=== PATIENT | female | born 1945 ===

== ENCOUNTER → 2017-12-18 | Outpatient (CLI) | payer MEDICARE, OTHER ==
[~2017-12-18] MED LIST: ALBU90OI INH; ALEN70 PO; AMLO5 PO; ASCO500 PO; ATOR20 PO; AZAT50 PO; AZIT250 PO; Aspirin EC325 MG PO; Aspirin EC81 MG PO; BISA10S PR; CLARITIN5 MG PO; CLOP75 PO; CYCL10 PO; Cipro500 MG PO; Cyclobenzaprine5 MG PO; DAPS100 PO; DIAZ5 PO; DOCU100 PO; Dapsone25 MG PO; ERGO400 PO; FERSU220EL PO; FURO20 PO; FURO40 PO; GABA100 PO; HYDACE10B PO; HYDACE5 PO; HYDHCL25 PO; HYDPAM50 PO; HYDR1TAB94 PO; HYDSUL200 PO; IMIP50 PO; INDERAL PO; Inderal 20 mg T20 MG PO; Inderal40 MG PO; KLOR CON PO; LANS15EC; LAVAP17G PO; LEVOTHYROXINE; LEVSOD75 PO; LISI20 PO; Lasix40 MG PO; MIRALAX17 GM PO; Nitrostat0.4 MG SL; Norco 5-325 Ta1 EACH PO; OMEP20ER PO; OMEPRAZOLE MAGN20 MG PO; ONDA4 PO; OXYACE5T PO; POTA10T PO; POTA8 PO; PROM25 PO; PROP10 PO; PROP80ER PO; Prednisone20 MG PO; RXHYDMOR2 PO; SENN187 PO; SPIR25 PO; STOOL SOFTENER1 EAC1 PO; Synthroid25 MCG PO; TRAZ50 PO; VERA80 PO; Valium5 MG PO; Zofran Odt4 MG SL
[2017-12-19 11:29] LABS: Candida species (DNA Probe) Negative (NEGATIVE); G. vaginalis (DNA Probe) Negative (NEGATIVE); T. vaginalis (DNA Probe) Negative (NEGATIVE)
== END | disposition home or self-care (01) ==
LOC: LAB EV 15:00
PROVIDERS: Nurse Practitioner Family
DX: N76.0 Acute vaginitis (principal); R30.0 Dysuria
CPT/HCPCS: 87070; 87077; 87086; 87186; 87205; 87480; 87510; 87660

== ENCOUNTER 2017-12-28 12:48 | Day surgery (SDC) | payer MEDICARE, OTHER ==
[~2017-12-28] VITALS: Ht 154.9 cm; Wt 84.1 kg
[~2017-12-28 12:48] MED LIST changes: -LANS15EC
[2017-12-28] MEDS ORDERED: LANS15EC (14:21)
== END 2017-12-28 15:49 | disposition home or self-care (01) ==
LOC: ORSCSDS 12:48
PROVIDERS: Internal Medicine Gastroenterology
PROC: 0DBM8ZX Excision of Descending Colon, Via Natural or Artificial Opening Endoscopic, Diagnostic (ICD-10-PCS; principal; 2017-12-28 14:15)
PROC: 0DBC8ZX Excision of Ileocecal Valve, Via Natural or Artificial Opening Endoscopic, Diagnostic (ICD-10-PCS; principal; 2017-12-28 14:15)
PROC: 0DBN8ZX Excision of Sigmoid Colon, Via Natural or Artificial Opening Endoscopic, Diagnostic (ICD-10-PCS; principal; 2017-12-28 14:15)
DX: R19.4 Change in bowel habit (principal); D12.0 Benign neoplasm of cecum; D12.4 Benign neoplasm of descending colon; D12.5 Benign neoplasm of sigmoid colon; K57.30 Diverticulosis of large intestine without perforation or abscess without bleeding; Z86.010 Personal history of colon polyps; L93.0 Discoid lupus erythematosus; I10 Essential (primary) hypertension; K21.9 Gastro-esophageal reflux disease without esophagitis; E78.00 Pure hypercholesterolemia, unspecified; Z79.899 Other long term (current) drug therapy
CPT/HCPCS: 88305; J1980; J7120

== ENCOUNTER → 2019-01-06 | Outpatient (CLI) | payer MEDICARE, OTHER ==
[~2019-01-06] MED LIST changes: +**INCOMPLETE MED REC; +Azasan100 MG PO; +EUTHYROX25 MCG PO; +Hydroxyzine HCl50 MG PO; +LANS15EC; +Omeprazole20 M1 PO; +POTCHL20ER PO
== END | disposition home or self-care (01) ==
LOC: LAB EV 15:52 → LAB SHORT 15:52
DX: N39.0 Urinary tract infection, site not specified (principal)
CPT/HCPCS: 87077; 87086; 87186

== ENCOUNTER 2019-01-11 18:06 | Observation (INO) | payer MEDICARE, OTHER ==
[~2019-01-11] VITALS: Ht 165.1 cm; Wt 71.8 kg
[~2019-01-11 18:06] MED LIST changes: -**INCOMPLETE MED REC; -AMLO5 PO; -Azasan100 MG PO; -Dapsone25 MG PO; -EUTHYROX25 MCG PO; -Hydroxyzine HCl50 MG PO; -MIRALAX17 GM PO; -Omeprazole20 M1 PO; -POTCHL20ER PO
[2019-01-11 21:23] LABS: BASOPHILS ABSOLUTE AUTO 0.03 K/mm3 (0.00-0.23); BASOPHILS PERCENT AUTO 0 % (0-2); EOSINOPHILS ABSOLUTE AUTO 0.01 K/mm3 (0.00-0.68); EOSINOPHILS PERCENT AUTO 0 % (0-6); Hemoglobin 10.8 g/dL (11.5-16.0); IMMATURE GRAN ABSOLUTE AUTO 0.04 K/mm3 (0.00-0.10); IMMATURE GRAN PERCENT AUTO 0 % (0-1); LYMPHOCYTES ABSOLUTE AUTO 0.98 K/mm3 (0.84-5.20); LYMPHOCYTES PERCENT AUTO 11 % (21-46); MONOCYTES ABSOLUTE AUTO 0.47 K/mm3 (0.16-1.47); MONOCYTES PERCENT AUTO 5 % (4-13); Mean Corpuscular HGB 31.4 pg (26.0-34.0); Mean Corpuscular HGB Conc 32.7 g/dL (31.5-36.5); Mean Corpuscular Volume 96 fL (80-100); NEUTROPHILS ABSOLUTE AUTO 7.63 K/mm3 (1.96-9.15); NEUTROPHILS PERCENT AUTO 83 % (41-73); Platelet Count 203 K/mm3 (150-400); RDW Coefficient Variation 13.8 % (11.7-14.2); RDW Standard Deviation 47.8 fL (35.1-46.3); Red Blood Cell Count 3.44 M/mm3 (3.80-5.20); White Blood Cell Count 9.16 K/mm3 (4.00-11.30)
[2019-01-11 21:33] LABS: Source, Urine Clean Catch
[2019-01-11 21:36] LABS: Appearance, Urine Clear (Clear); Bilirubin, Urine Neg (Neg); Blood, Urine Neg (Neg); Color, Urine Yellow (P-Yellow); Glucose Qualitative, Urine Neg (Neg); Ketones, Urine Neg (Neg); Leukocyte Esterase, Urine 3+ (Neg); Nitrite, Urine Neg (Neg); Protein, Urine Neg (Neg); Specific Gravity, Urine 1.015 (1.003-1.022); Urobilinogen, Urine NORM (Normal)
[2019-01-11 21:40] LABS: Anion Gap 6 mmol/L (6-16); Blood Urea Nitrogen 10 mg/dL (8-24); Bun/Creatinine Ratio 14.9 (12.0-20.0); CO2, Blood 36 mmol/L (21-32); Calcium, Blood 8.3 mg/dL (8.5-10.1); Chloride, Blood 99 mmol/L (98-108); Creatinine, Blood 0.67 mg/dL (0.40-1.00); Glomerular Filtration Rate >60 (60-); Glucose, Blood 99 mg/dL (70-99); Potassium, Blood 2.6 mmol/L (3.5-5.5); Sodium, Blood 141 mmol/L (136-145)
[2019-01-11] MEDS ORDERED: **INCOMPLETE MED REC (21:44)
[2019-01-11 21:45] LABS: Bacteria Not Seen /hpf; Red Blood Cells, Urine Not Seen /hpf (0-2); Squamous Epithelial Cells Few /hpf (Few)
[2019-01-11] MEDS ORDERED: AMLO5 PO (21:55)
[2019-01-11] MEDS ORDERED: Azasan100 MG PO (21:56)
[2019-01-11] MEDS ORDERED: AZAT50 PO (21:56)
[2019-01-11] MEDS ORDERED: Dapsone25 MG PO (21:57)
[2019-01-11] MEDS ORDERED: CYCL10 PO (21:58)
[2019-01-11] MEDS ORDERED: GABA100 PO (22:00)
[2019-01-11] MEDS ORDERED: FURO40 PO (22:00)
[2019-01-11] MEDS ORDERED: POTCHL20ER PO (22:02)
[2019-01-11] MEDS ORDERED: Hydroxyzine HCl50 MG PO (22:02)
[2019-01-11] MEDS ORDERED: EUTHYROX25 MCG PO (22:03)
[2019-01-11] MEDS ORDERED: MIRALAX17 GM PO (22:04)
[2019-01-11] MEDS ORDERED: HYDR1TAB94 PO (22:05)
[2019-01-11] MEDS ORDERED: Omeprazole20 M1 PO (22:06)
[2019-01-11] MEDS ORDERED: Inderal40 MG PO (22:08)
[2019-01-11] MEDS ORDERED: HYDSUL200 PO (22:08)
[2019-01-11] MEDS ORDERED: TRAZ50 PO (22:09)
--- NOTE | 2019-01-11 23:15 | NUR ---
RECEIVED HAND OFF FROM ER NURSE USING SBAR. TRANSPORTED TO ROOM 215 VIA STRETCHER. TRANSFERED TO BED WITH FULL STAFF ASSISTANCE, TOLERATED WELL. LYING IN SUPINE POSITION WITH EYES OPEN. AAO X3, RODRIGUEZ, FOLLOWS ALL COMMANDS. ORIENTED TO ROOM, CALL SYSTEM, AND POC, VOICES UNDERSTANDING. LEFT HIP WEAKNESS AND PAIN VERBALIZED, STATES PAIN LEVEL OF 7/10. MEDICATED PER MD ORDERS, REPORTS CURRENT PAIN LEVEL OF 0/10. CONTUSIONS NOTED TO BACK ON LEFT SIDE AND DUSKYNESS TO LUMBAR REGION, PT STATES THAT DUSKYNESS IS HER NORMAL. STATES THAT LAST BM WAS 4 DAYS AGO, BOWEL CARE PERFORMED. DAUGHTER AT BEDSIDE STATES THAT SHE NO LONGER BELIEVES THAT HER MOM IS SAFE IN THE CURRENT HOME SITUATION AND WANTS HER TO COME LIVE WITH HER. PT STATES THAT SHE WANTS TO MAINTAIN HER INDEPENDENCE. PT'S CURRENT SO HAS RECENTLY LEFT, SO SHE HAS BEEN VERY DEPRESSED. STATES THAT SHE HAS NOT BEEN EATING PROPERLY OR CARING FOR HERSELF DUE TO THIS DEPRESSION. DEINES SUICIDAL THOUGHTS/IDEATION. CURRENTLY RESIDES IN A MOTOR HOME PARKED BEHIND HER HOME DUE TO RENOVATIONS THAT WERE SUPPOSED TO HAPPEN WITH HER AND HER SO. DAUGHTER STATES SHE DOES NOT BELIEVE THAT THIS IS NOT SAFE. NURSING INFORMED PT ABND DAUGHTER THAT THESE THINGS WILL BE SORTED OUT BEFORE DISCHARGE. PT DENIES FURTHER NEEDS AT THIS TIME. ADMISSION ASSESSMENT IN PROGRESS. SAFETY MEASURES IN PLACE. WILL CONTINUE TO MONITOR.
--- NOTE | 2019-01-12 00:30 | NUR ---
20G PIV TO RIGHT AC D/C'D WITH CATH TIP INTACT. NEW 18G PIV PLACED TO LEFT AC X1 ATTEMPT, TOLERATED WELL. FLUSHES WITH EASE AND GOOD BLOOD RETURN NOTED. SAFETY MEASURES IN PLACE. WILL CONTINNUE TO MONITOR.
[2019-01-12 04:17] LABS: Hematocrit 31.5 % (33.0-51.0); Mean Corpuscular HGB 30.5 pg (26.0-34.0); Mean Corpuscular HGB Conc 31.7 g/dL (31.5-36.5); Mean Corpuscular Volume 96 fL (80-100); Mean Platelet Volume 10.1 fL (9.1-12.4); Platelet Count 200 K/mm3 (150-400); RDW Coefficient Variation 13.7 % (11.7-14.2); RDW Standard Deviation 48.6 fL (35.1-46.3); Red Blood Cell Count 3.28 M/mm3 (3.80-5.20); White Blood Cell Count 7.52 K/mm3 (4.00-11.30)
[2019-01-12 04:56] LABS: Alanine Aminotransfer (ALT/SGP 17 U/L (12-78); Albumin, Blood 3.1 g/dL (3.4-5.0); Albumin/Globulin Ratio 1.1 (0.8-1.8); Alk Phos 58 U/L (50-136); Anion Gap 7 mmol/L (6-16); Aspartate Aminotrans (AST/SGOT 25 U/L (12-37); Bilirubin, Total 1.1 mg/dL (0.1-1.0); Blood Urea Nitrogen 11 mg/dL (8-24); Bun/Creatinine Ratio 16.2 (12.0-20.0); CO2, Blood 34 mmol/L (21-32); Chloride, Blood 100 mmol/L (98-108); Creatinine, Blood 0.68 mg/dL (0.40-1.00); Globulin, Blood 2.8 g/dL (2.2-4.0); Glomerular Filtration Rate >60 (60-); Glucose, Blood 99 mg/dL (70-99); Potassium, Blood 2.6 mmol/L (3.5-5.5); Sodium, Blood 141 mmol/L (136-145); Total Protein, Blood 5.9 g/dL (6.4-8.2)
--- NOTE | 2019-01-12 20:02 | NUR ---
SUMMARY NO ACUTE CHANGES NOTED THROUGH THE SHIFT. PAIN MANAGED WITH PO PAIN MEDS. KCL INFUSED PER EMAR. PT WAS UNABLE TO WORK WITH THERAPY DUE TO PAIN. THEY STATED THEY WILL RETURN IN THE AM TO TRY AGAIN. PT IS TOLERATING PO INTAKE. ATTENDS CHANGED PRN . CALL LIGHT IN REACH. WCTM
--- NOTE | 2019-01-13 04:43 | NUR ---
SHIFT SUMMARY PT ADMITTED FOR NONSURGICAL LEFT HIP FX. TTWB, PT WORKED WITH PT YESTERDAY AND WILL CONTINUE TO MOBILIZE. PT IS INCONT, CHECK AND CHANGE, ATTENDS IN PLACE. SHE HAD A BOUT OF DIARRHEA LAST NIGHT BUT STATED THAT WAS HER FIRST BM IN A FEW DAYS. MEDICATED FOR PAIN PER EMAR. WILL CTM UNTIL PASS TO NEXT SHIFT.
[2019-01-13 12:34] LABS: BASOPHILS ABSOLUTE AUTO 0.03 K/mm3 (0.00-0.23); BASOPHILS PERCENT AUTO 0 % (0-2); EOSINOPHILS ABSOLUTE AUTO 0.07 K/mm3 (0.00-0.68); EOSINOPHILS PERCENT AUTO 1 % (0-6); Hematocrit 31.4 % (33.0-51.0); Hemoglobin 9.9 g/dL (11.5-16.0); IMMATURE GRAN ABSOLUTE AUTO 0.04 K/mm3 (0.00-0.10); IMMATURE GRAN PERCENT AUTO 1 % (0-1); LYMPHOCYTES ABSOLUTE AUTO 1.43 K/mm3 (0.84-5.20); LYMPHOCYTES PERCENT AUTO 19 % (21-46); MONOCYTES ABSOLUTE AUTO 0.39 K/mm3 (0.16-1.47); MONOCYTES PERCENT AUTO 5 % (4-13); Mean Corpuscular HGB 31.6 pg (26.0-34.0); Mean Corpuscular HGB Conc 31.5 g/dL (31.5-36.5); Mean Platelet Volume 10.1 fL (9.1-12.4); NEUTROPHILS ABSOLUTE AUTO 5.43 K/mm3 (1.96-9.15); NEUTROPHILS PERCENT AUTO 74 % (41-73); Platelet Count 192 K/mm3 (150-400); RDW Coefficient Variation 14.3 % (11.7-14.2); RDW Standard Deviation 51.4 fL (35.1-46.3); Red Blood Cell Count 3.13 M/mm3 (3.80-5.20); White Blood Cell Count 7.39 K/mm3 (4.00-11.30)
[2019-01-13 12:37] LABS: Mean Corpuscular Volume 100 fL (80-100)
[2019-01-13 12:50] LABS: Anion Gap 6 mmol/L (6-16); Blood Urea Nitrogen 11 mg/dL (8-24); Bun/Creatinine Ratio 14.6 (12.0-20.0); CO2, Blood 31 mmol/L (21-32); Calcium, Blood 8.8 mg/dL (8.5-10.1); Chloride, Blood 100 mmol/L (98-108); Creatinine, Blood 0.75 mg/dL (0.40-1.00); Glomerular Filtration Rate >60 (60-); Glucose, Blood 103 mg/dL (70-99); Potassium, Blood 4.1 mmol/L (3.5-5.5); Sodium, Blood 137 mmol/L (136-145)
--- NOTE | 2019-01-13 18:27 | NUR ---
SHIFT SUMMARY PATIENT STATES PAIN CONTROLLED WITH PO PAIN MED. ABLE TO TOLERATE UP TO RECLINER CHAIR ALL AFTERNOON. TOLERATING PO. NO ACUTE CHANGES OR C/O.
--- NOTE | 2019-01-14 07:22 | NUR ---
SHIFT SUMMARY PT A&O X4 T/O SHIFT. NO ACUTE CHANGES. PT S/P L HIP FX; PPPX4; EXT PWD. PAIN MANGED PER EMAR. RA; PT DENIES SOB, CP AND NAUSEA. SMALL SOFT BM X1. PT REPOSITIONED TOLERATED. CALL LIGHT IN REACH; PT DEMONSTRATES USE. REPORT GIVEN TO DAY SHIFT RN.
--- NOTE | 2019-01-14 17:17 | NUR ---
PATIENT D/C'D HOME WITH DAUGHTER AT THIS TIME. 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 PATIENT AND DAUGHTER AGREEABLE TO DISCHARGE AND STATE CONFIDENCE IN PATIENT RECEIVING ADEQUATE CARE. PATIENT MOVES WELL WITH STAND AND PIVOT TRANSFERS. STATES PAIN AT TOLERABLE LEVEL WITH PO PAIN MED. TOLERATING DIET. PATIENT AND DAUGHTER STATE UNDERSTANDING OF MEDS, F/U APPTS, ACTIVITY, ETC. NO ACUTE CHANGES OR C/O.
== END 2019-01-14 17:19 | disposition home health service (06) ==
LOC: ER 18:06 → SURS 18:07 → ER 21:31 → SURS 21:31
PROVIDERS: Emergency Medicine; Internal Medicine; ADMIT Internal Medicine
DX: S32.402A Unspecified fracture of left acetabulum, initial encounter for closed fracture (principal); N39.0 Urinary tract infection, site not specified; I10 Essential (primary) hypertension; M32.9 Systemic lupus erythematosus, unspecified; F32.9 Major depressive disorder, single episode, unspecified; M79.7 Fibromyalgia; E87.6 Hypokalemia; K59.00 Constipation, unspecified; M81.0 Age-related osteoporosis without current pathological fracture; K21.9 Gastro-esophageal reflux disease without esophagitis; F41.9 Anxiety disorder, unspecified; E78.5 Hyperlipidemia, unspecified; Z88.0 Allergy status to penicillin; Z98.890 Other specified postprocedural states; Z86.73 Personal history of transient ischemic attack (TIA), and cerebral infarction without residual deficits; Z86.19 Personal history of other infectious and parasitic diseases; W18.30XA Fall on same level, unspecified, initial encounter; Y92.000 Kitchen of unspecified non-institutional (private) residence as the place of occurrence of the external cause
CPT/HCPCS: 36415; 73502; 80048; 80053; 81001; 85025; 85027; 87086; 96361; 96374; 96375; 96376; 97110; 97163; 97166; 97530; 97535; 99284-25; G0378; J1170; J1650; J1956; J3010; J3480; J7030; J7500

== ENCOUNTER → 2019-02-11 | Outpatient (CLI) | payer MEDICARE, OTHER ==
[~2019-02-11] MED LIST changes: +**INCOMPLETE MED REC; +AMLO5 PO; +Azasan100 MG PO; +Dapsone25 MG PO; +EUTHYROX25 MCG PO; +Hydroxyzine HCl50 MG PO; +MIRALAX17 GM PO; +Omeprazole20 M1 PO; +POTCHL20ER PO; +Zovirax800 MG PO
[2019-02-11 19:29] LABS: Bilirubin, Urine Neg (Neg); Blood, Urine 1+ (Neg); Glucose Qualitative, Urine Neg (Neg); Ketones, Urine Neg (Neg); Leukocyte Esterase, Urine 3+ (Neg); Nitrite, Urine Pos (Neg); Protein, Urine Neg (Neg); Urobilinogen, Urine NORM (Normal)
[2019-02-11 20:01] LABS: Appearance, Urine Hazy (Clear); Color, Urine Yellow (P-Yellow)
[2019-02-11 20:04] LABS: Bacteria Many /hpf; Squamous Epithelial Cells Mod /hpf (Few); White Blood Cells, Urine 25-50 /hpf (0-5)
== END ==
LOC: LAB SHORT 14:00 → LAB 14:00
PROVIDERS: Student in an Organized Health Care Education/Training Program
DX: N39.0 Urinary tract infection, site not specified (principal)
CPT/HCPCS: 81001; 87077; 87086; 87186

== ENCOUNTER → 2019-02-25 | Outpatient (CLI) | payer MEDICARE, OTHER | LOC: LAB EV 15:20 → LAB SHORT 15:20 | DX: R30.0 Dysuria (principal) | CPT/HCPCS: 87086 ==

== ENCOUNTER → 2019-05-13 | Outpatient (CLI) | payer MEDICARE, OTHER ==
[2019-05-13 17:03] LABS: Bilirubin, Urine Neg (Neg); Blood, Urine Neg (Neg); Glucose Qualitative, Urine Neg (Neg); Ketones, Urine Neg (Neg); Leukocyte Esterase, Urine Neg (Neg); Nitrite, Urine Neg (Neg); Protein, Urine Neg (Neg); Specific Gravity, Urine 1.005 (1.003-1.022); Urobilinogen, Urine NORM (Normal)
[2019-05-13 17:49] LABS: Appearance, Urine Clear (Clear); Color, Urine Yellow (P-Yellow)
== END | disposition home or self-care (01) ==
LOC: LAB 13:43 → LAB SHORT 13:43
PROVIDERS: Physician Assistant Medical
DX: R30.0 Dysuria (principal)
CPT/HCPCS: 81003; 87086

== ENCOUNTER 2019-10-06 15:33 | Emergency (ER) | payer MEDICARE, OTHER ==
[~2019-10-06] VITALS: Ht 152.4 cm; Wt 72.6 kg
[2019-10-06 16:06] LABS: BASOPHILS ABSOLUTE AUTO 0.03 K/mm3 (0.00-0.23); BASOPHILS PERCENT AUTO 1 % (0-2); EOSINOPHILS ABSOLUTE AUTO 0.05 K/mm3 (0.00-0.68); EOSINOPHILS PERCENT AUTO 1 % (0-6); Hematocrit 32.5 % (33.0-51.0); Hemoglobin 10.4 g/dL (11.5-16.0); IMMATURE GRAN ABSOLUTE AUTO 0.02 K/mm3 (0.00-0.10); IMMATURE GRAN PERCENT AUTO 0 % (0-1); LYMPHOCYTES ABSOLUTE AUTO 2.02 K/mm3 (0.84-5.20); LYMPHOCYTES PERCENT AUTO 36 % (21-46); MONOCYTES PERCENT AUTO 7 % (4-13); Mean Corpuscular HGB 30.9 pg (26.0-34.0); Mean Corpuscular Volume 96 fL (80-100); Mean Platelet Volume 9.9 fL (9.1-12.4); NEUTROPHILS ABSOLUTE AUTO 3.15 K/mm3 (1.96-9.15); NEUTROPHILS PERCENT AUTO 56 % (41-73); Platelet Count 189 K/mm3 (150-400); RDW Coefficient Variation 12.9 % (11.7-14.2); RDW Standard Deviation 45.6 fL (35.1-46.3); Red Blood Cell Count 3.37 M/mm3 (3.80-5.20); White Blood Cell Count 5.67 K/mm3 (4.00-11.30)
[2019-10-06 16:30] LABS: Alanine Aminotransfer (ALT/SGP 25 U/L (12-78); Albumin, Blood 3.6 g/dL (3.4-5.0); Albumin/Globulin Ratio 1.2 (0.8-1.8); Alk Phos 60 U/L (50-136); Anion Gap 7 mmol/L (6-16); Aspartate Aminotrans (AST/SGOT 29 U/L (12-37); Bilirubin, Total 0.7 mg/dL (0.1-1.0); Blood Urea Nitrogen 14 mg/dL (8-24); Bun/Creatinine Ratio 18.8 (12.0-20.0); CO2, Blood 27 mmol/L (21-32); Calcium, Blood 8.3 mg/dL (8.5-10.1); Chloride, Blood 104 mmol/L (98-108); Creatinine, Blood 0.74 mg/dL (0.40-1.00); Glomerular Filtration Rate >60 (60-); Glucose, Blood 88 mg/dL (70-99); Potassium, Blood 3.3 mmol/L (3.5-5.5); Sodium, Blood 138 mmol/L (136-145); Total Protein, Blood 6.6 g/dL (6.4-8.2); Troponin I 0.019 ng/mL (0.000-0.040)
[2019-10-06] MEDS ORDERED: HYDR1TAB94 PO (17:13)
== END 2019-10-06 17:56 | disposition home or self-care (01) ==
LOC: ER 15:33
PROVIDERS: Emergency Medicine
DX: R07.2 Precordial pain (principal); R51 Headache; I10 Essential (primary) hypertension; F32.9 Major depressive disorder, single episode, unspecified; F41.9 Anxiety disorder, unspecified; E78.5 Hyperlipidemia, unspecified; Z88.0 Allergy status to penicillin; Z88.8 Allergy status to other drugs, medicaments and biological substances; Z79.899 Other long term (current) drug therapy; Z79.891 Long term (current) use of opiate analgesic
CPT/HCPCS: 36415; 71046; 80053; 83880; 84484; 85025; 93005; 93010; 96374; 96375; 99284-25; J1170; J1885; J2405

== ENCOUNTER 2020-11-14 15:07 | Inpatient (IN) | payer MEDICARE, OTHER ==
[~2020-11-14] VITALS: Ht 152.4 cm; Wt 74.4 kg
[~2020-11-14 15:07] MED LIST changes: -Dapsone25 MG PO; -EUTHYROX25 MCG PO; -Omeprazole20 M1 PO
[2020-11-14 18:21] LABS: BASOPHILS ABSOLUTE AUTO 0.04 K/mm3 (0.00-0.23); BASOPHILS PERCENT AUTO 0 % (0-2); EOSINOPHILS PERCENT AUTO 0 % (0-6); Hematocrit 34.1 % (33.0-51.0); Hemoglobin 10.9 g/dL (11.5-16.0); IMMATURE GRAN ABSOLUTE AUTO 0.05 K/mm3 (0.00-0.10); IMMATURE GRAN PERCENT AUTO 1 % (0-1); LYMPHOCYTES ABSOLUTE AUTO 1.86 K/mm3 (0.84-5.20); LYMPHOCYTES PERCENT AUTO 19 % (21-46); MONOCYTES ABSOLUTE AUTO 0.64 K/mm3 (0.16-1.47); MONOCYTES PERCENT AUTO 7 % (4-13); Mean Corpuscular HGB 31.1 pg (26.0-34.0); Mean Corpuscular Volume 97 fL (80-100); Mean Platelet Volume 10.4 fL (9.1-12.4); NEUTROPHILS ABSOLUTE AUTO 7.16 K/mm3 (1.96-9.15); NEUTROPHILS PERCENT AUTO 73 % (41-73); Platelet Count 155 K/mm3 (150-400); RDW Coefficient Variation 13.8 % (11.7-14.2); RDW Standard Deviation 49.1 fL (35.1-46.3); Red Blood Cell Count 3.51 M/mm3 (3.80-5.20); White Blood Cell Count 9.75 K/mm3 (4.00-11.30)
[2020-11-14 18:35] LABS: Source, Urine Clean Catch
[2020-11-14 18:41] LABS: Appearance, Urine Clear (Clear); Bilirubin, Urine Neg (Neg); Blood, Urine Neg (Neg); Color, Urine Yellow (P-Yellow); Glucose Qualitative, Urine Neg (Neg); Ketones, Urine Neg (Neg); Leukocyte Esterase, Urine 1+ (Neg); Nitrite, Urine Neg (Neg); Protein, Urine Neg (Neg); Urobilinogen, Urine NORM (Normal)
[2020-11-14 18:46] LABS: Alanine Aminotransfer (ALT/SGP 31 U/L (12-78); Albumin, Blood 3.4 g/dL (3.4-5.0); Albumin/Globulin Ratio 1.1 (0.8-1.8); Alk Phos 66 U/L (50-136); Anion Gap 8 mmol/L (6-16); Aspartate Aminotrans (AST/SGOT 38 U/L (12-37); Blood Urea Nitrogen 17 mg/dL (8-24); Bun/Creatinine Ratio 19.9 (12.0-20.0); CO2, Blood 26 mmol/L (21-32); Calcium, Blood 8.4 mg/dL (8.5-10.1); Chloride, Blood 103 mmol/L (98-108); Creatinine, Blood 0.85 mg/dL (0.40-1.00); Glomerular Filtration Rate >60 (60-); Glucose, Blood 90 mg/dL (70-99); Potassium, Blood 3.4 mmol/L (3.5-5.5); Sodium, Blood 137 mmol/L (136-145); Total Protein, Blood 6.4 g/dL (6.4-8.2); Troponin I 0.169 ng/mL (0.000-0.040)
[2020-11-14 19:02] LABS: Bacteria Rare /hpf; Red Blood Cells, Urine Not Seen /hpf (0-2); Squamous Epithelial Cells Not Seen /hpf (Few); White Blood Cells, Urine 0-2 /hpf (0-5)
[2020-11-14 19:50] LABS: Influenza A, PCR Negative (NEGATIVE); Influenza B, PCR Negative (NEGATIVE); Resp Syncytial Virus, PCR Negative (NEGATIVE); SARS-Cov-2 (COVID-19) PCR, MMC Negative (NEGATIVE)
[2020-11-14] MEDS ORDERED: AZAT50 PO (20:07)
[2020-11-14] MEDS ORDERED: K-Dur20 MEQ PO (20:08)
[2020-11-14] MEDS ORDERED: SPIRONOLACTONE25 MG PO (20:08)
[2020-11-14] MEDS ORDERED: GABA300 PO (20:09)
[2020-11-14] MEDS ORDERED: TRAZ100 PO (20:10)
[2020-11-14] MEDS ORDERED: FOSAMAX70 MG PO (20:11)
[2020-11-14] MEDS ORDERED: EUTHYROX25 MCG PO (20:12)
[2020-11-14] MEDS ORDERED: FUROSEMIDE40 MG PO (20:12)
[2020-11-14] MEDS ORDERED: Dapsone25 MG PO (20:13)
[2020-11-14] MEDS ORDERED: Inderal40 MG PO (20:14)
[2020-11-14] MEDS ORDERED: HYDSUL200 PO (20:14)
[2020-11-14] MEDS ORDERED: CYCL10 PO (20:14)
[2020-11-14] MEDS ORDERED: Omeprazole20 M1 PO (20:15)
[2020-11-14 22:06] LABS: CPK Creatine Kinase 77 U/L (26-193)
[2020-11-15 01:03] LABS: BASOPHILS ABSOLUTE AUTO 0.01 K/mm3 (0.00-0.23); BASOPHILS PERCENT AUTO 0 % (0-2); EOSINOPHILS PERCENT AUTO 0 % (0-6); Hematocrit 29.2 % (33.0-51.0); Hemoglobin 9.3 g/dL (11.5-16.0); IMMATURE GRAN ABSOLUTE AUTO 0.04 K/mm3 (0.00-0.10); IMMATURE GRAN PERCENT AUTO 1 % (0-1); LYMPHOCYTES ABSOLUTE AUTO 1.84 K/mm3 (0.84-5.20); LYMPHOCYTES PERCENT AUTO 24 % (21-46); MONOCYTES ABSOLUTE AUTO 0.55 K/mm3 (0.16-1.47); MONOCYTES PERCENT AUTO 7 % (4-13); Mean Corpuscular HGB Conc 31.8 g/dL (31.5-36.5); Mean Corpuscular Volume 97 fL (80-100); Mean Platelet Volume 10.2 fL (9.1-12.4); NEUTROPHILS ABSOLUTE AUTO 5.11 K/mm3 (1.96-9.15); NEUTROPHILS PERCENT AUTO 68 % (41-73); Platelet Count 125 K/mm3 (150-400); RDW Coefficient Variation 13.7 % (11.7-14.2); RDW Standard Deviation 48.7 fL (35.1-46.3); White Blood Cell Count 7.55 K/mm3 (4.00-11.30)
[2020-11-15 01:20] LABS: Alanine Aminotransfer (ALT/SGP 26 U/L (12-78); Albumin, Blood 2.8 g/dL (3.4-5.0); Albumin/Globulin Ratio 1.2 (0.8-1.8); Alk Phos 57 U/L (50-136); Anion Gap 4 mmol/L (6-16); Aspartate Aminotrans (AST/SGOT 32 U/L (12-37); Bilirubin, Total 0.7 mg/dL (0.1-1.0); Blood Urea Nitrogen 14 mg/dL (8-24); Bun/Creatinine Ratio 16.9 (12.0-20.0); CO2, Blood 29 mmol/L (21-32); Calcium, Blood 7.9 mg/dL (8.5-10.1); Chloride, Blood 110 mmol/L (98-108); Creatinine, Blood 0.83 mg/dL (0.40-1.00); Globulin, Blood 2.4 g/dL (2.2-4.0); Glomerular Filtration Rate >60 (60-); Glucose, Blood 85 mg/dL (70-99); Potassium, Blood 3.9 mmol/L (3.5-5.5); Sodium, Blood 143 mmol/L (136-145); Total Protein, Blood 5.2 g/dL (6.4-8.2)
[2020-11-15 01:30] LABS: Troponin I 0.223 ng/mL (0.000-0.040)
--- NOTE | 2020-11-15 03:30 | NUR ---
LATE ENTRY - ADMIT NOTE RECEIVED HANDOFF FROM ER NURSE TATYANA. PT TRANSFERED TO FLOOR VIA GURNEY. PERSONAL POSSESSIONS WITH PT. PT ORIENTED TO UNIT. CALL BUTTON WITHIN REACH. IV FLUIDS INFUSING ORDERED. TELEMETRY IN PLACE
--- NOTE | 2020-11-15 04:02 | NUR ---
SHIFT SUMMARY ADMITTED FOR ELEVATED TROPONINS. FULL CODE. PLAN IS FOR CARDIOLOGY CONSULT (CONSULT CALLED & LEFT MESSAGE), TREND TROPONINS, MONITOR LABS. TELEMETRY: NSR @ 65 BPM. NS INFUSING ORDERED. POSSIBLE UTI.
[2020-11-15 07:30] LABS: International Normalized Ratio 1.02; Prothrombin Time Results 10.9 Sec (9.7-11.5)
[2020-11-15 09:42] LABS: Troponin I 0.201 ng/mL (0.000-0.040)
--- NOTE | 2020-11-15 19:32 | NUR ---
SHIFT SUMMARY: PATIENT A&O; CALM AND COOPERATIVE WITH CARE. NO C/O PAIN THIS SHIFT. MULTIPLE PEs IN BILATERAL LUNGS; HEPARIN DRIP STARTED THIS SHIFT. US OF BILATERAL EXTREMITIES; R LEG CLOT FOUND; INTERVENTIONAL RADIOLOGY (DR FONTANEZ) CONSULTED THIS SHIFT. REPORT GIVEN TO ONCOMING RN.
--- NOTE | 2020-11-16 05:48 | NUR ---
ROLL FORGER SUMMARY PT A&OX4, ABLE TO MAKE NEEDS KNOWN. PLEASANT AND COOPERATIVE TO CARE. NO C/O PAIN. CALM AND RESTED IN BED T/O SHIFT. DENIES CP OR SOB. PT MEDICATED FOR NAUSEA X1 THIS SHIFT. PT VERBALIZED THAT ZOFRAN WAS EFFECTIVE. CONT ON HEPARIN DRIP ORDERED. PT RESTING IN BED AT THIS TIME. BED AT LOWEST POSITION, CALL LIGHT WITHIN REACH.
[2020-11-16] MEDS ORDERED: XARELTO10 M1 PO (16:43)
--- NOTE | 2020-11-16 18:42 | NUR ---
PATIENT DISCHARGE: PATIENT DISCHARGED TO HOME THIS SHIFT. MEDICATION RECONCILIATION COMPLETED; [facility] [place]. DISCHARGE EDUCATION COMPLETED WITH PATIENT AND FAMILY. PATIENT TRANSPORTED TO EXIT BY [facility] STAFF WITH WHEELCHAIR AT 1835. PATIENT DEPARTED [facility] VIA PRIVATE AUTO.
== END 2020-11-16 18:39 | disposition home or self-care (01) | DRG 299 ==
LOC: ER 15:07 → MEDS 15:08
PROVIDERS: Emergency Medicine; ADMIT Internal Medicine
DX: I82.411 Acute embolism and thrombosis of right femoral vein (principal); I26.99 Other pulmonary embolism without acute cor pulmonale; E78.5 Hyperlipidemia, unspecified; E86.0 Dehydration; E87.6 Hypokalemia; I10 Essential (primary) hypertension; M32.9 Systemic lupus erythematosus, unspecified; I82.431 Acute embolism and thrombosis of right popliteal vein; Z20.828 Contact with and (suspected) exposure to other viral communicable diseases; K21.9 Gastro-esophageal reflux disease without esophagitis; M79.7 Fibromyalgia; R09.02 Hypoxemia
CPT/HCPCS: 0241U; 36415; 71045; 71260; 80053; 81001; 82550; 83880; 84484; 85025; 85379; 85610; 85730; 87086; 93005; 93010; 93306; 93970; 94761; 99285-25; A9270; A9270-GY; G0378; J1644; J2405; J7030; J7500; Q9967

== ENCOUNTER 2020-11-19 17:26 | Emergency (ER) | payer MEDICARE, OTHER ==
[~2020-11-19] VITALS: Ht 152.4 cm; Wt 72.6 kg
[~2020-11-19 17:26] MED LIST changes: +Dapsone25 MG PO; +EUTHYROX25 MCG PO; +FOSAMAX70 MG PO; +FUROSEMIDE40 MG PO; +GABA300 PO; +K-Dur20 MEQ PO; +Omeprazole20 M1 PO; +SPIRONOLACTONE25 MG PO; +TRAZ100 PO; +XARELTO10 M1 PO
[2020-11-19 17:57] LABS: BASOPHILS ABSOLUTE AUTO 0.04 K/mm3 (0.00-0.23); BASOPHILS PERCENT AUTO 1 % (0-2); EOSINOPHILS PERCENT AUTO 0 % (0-6); Hematocrit 35.8 % (33.0-51.0); Hemoglobin 11.2 g/dL (11.5-16.0); IMMATURE GRAN ABSOLUTE AUTO 0.03 K/mm3 (0.00-0.10); IMMATURE GRAN PERCENT AUTO 1 % (0-1); LYMPHOCYTES ABSOLUTE AUTO 1.69 K/mm3 (0.84-5.20); LYMPHOCYTES PERCENT AUTO 26 % (21-46); MONOCYTES ABSOLUTE AUTO 0.42 K/mm3 (0.16-1.47); MONOCYTES PERCENT AUTO 7 % (4-13); Mean Corpuscular HGB 30.6 pg (26.0-34.0); Mean Corpuscular HGB Conc 31.3 g/dL (31.5-36.5); Mean Corpuscular Volume 98 fL (80-100); Mean Platelet Volume 10.1 fL (9.1-12.4); NEUTROPHILS ABSOLUTE AUTO 4.28 K/mm3 (1.96-9.15); NEUTROPHILS PERCENT AUTO 66 % (41-73); Platelet Count 202 K/mm3 (150-400); RDW Standard Deviation 50.4 fL (35.1-46.3); Red Blood Cell Count 3.66 M/mm3 (3.80-5.20); White Blood Cell Count 6.46 K/mm3 (4.00-11.30)
[2020-11-19 18:21] LABS: International Normalized Ratio 1.33
[2020-11-19 18:44] LABS: Alanine Aminotransfer (ALT/SGP 29 U/L (12-78); Albumin, Blood 3.6 g/dL (3.4-5.0); Albumin/Globulin Ratio 1.1 (0.8-1.8); Alk Phos 74 U/L (50-136); Anion Gap 7 mmol/L (6-16); Aspartate Aminotrans (AST/SGOT 36 U/L (12-37); Bilirubin, Total 0.9 mg/dL (0.1-1.0); Blood Urea Nitrogen 14 mg/dL (8-24); Bun/Creatinine Ratio 14.6 (12.0-20.0); CO2, Blood 27 mmol/L (21-32); Calcium, Blood 8.9 mg/dL (8.5-10.1); Chloride, Blood 103 mmol/L (98-108); Creatinine, Blood 0.96 mg/dL (0.40-1.00); Globulin, Blood 3.3 g/dL (2.2-4.0); Glomerular Filtration Rate >60 (60-); Glucose, Blood 94 mg/dL (70-99); Sodium, Blood 137 mmol/L (136-145); Total Protein, Blood 6.9 g/dL (6.4-8.2)
== END 2020-11-19 19:20 | disposition home or self-care (01) ==
LOC: ER 17:26
PROVIDERS: Physician Assistant
DX: I26.99 Other pulmonary embolism without acute cor pulmonale (principal); Z79.52 Long term (current) use of systemic steroids; Z88.0 Allergy status to penicillin; Z88.8 Allergy status to other drugs, medicaments and biological substances; Z79.01 Long term (current) use of anticoagulants; Z79.899 Other long term (current) drug therapy
CPT/HCPCS: 80053; 85025; 85610; 85730; 99283

== ENCOUNTER 2020-11-22 14:29 | Emergency (ER) | payer MEDICARE, OTHER ==
[~2020-11-22] VITALS: Ht 152.4 cm; Wt 72.6 kg
== END 2020-11-22 15:34 | disposition home or self-care (01) ==
LOC: ER 14:29
DX: I82.401 Acute embolism and thrombosis of unspecified deep veins of right lower extremity (principal); Z88.0 Allergy status to penicillin; Z88.8 Allergy status to other drugs, medicaments and biological substances; Z79.899 Other long term (current) drug therapy
CPT/HCPCS: 99282

== ENCOUNTER 2020-11-27 18:08 | Emergency (ER) | payer MEDICARE, OTHER ==
[~2020-11-27] VITALS: Ht 152.4 cm; Wt 72.6 kg
[2020-11-27] MEDS ORDERED: DONEPEZIL HCL5 M2 PO (18:39)
[2020-11-27 18:59] LABS: BASOPHILS ABSOLUTE AUTO 0.04 K/mm3 (0.00-0.23); BASOPHILS PERCENT AUTO 1 % (0-2); EOSINOPHILS PERCENT AUTO 0 % (0-6); Hematocrit 35.4 % (33.0-51.0); Hemoglobin 11.1 g/dL (11.5-16.0); IMMATURE GRAN ABSOLUTE AUTO 0.06 K/mm3 (0.00-0.10); IMMATURE GRAN PERCENT AUTO 1 % (0-1); LYMPHOCYTES ABSOLUTE AUTO 2.09 K/mm3 (0.84-5.20); LYMPHOCYTES PERCENT AUTO 32 % (21-46); MONOCYTES ABSOLUTE AUTO 0.55 K/mm3 (0.16-1.47); MONOCYTES PERCENT AUTO 8 % (4-13); Mean Corpuscular HGB Conc 31.4 g/dL (31.5-36.5); Mean Corpuscular Volume 99 fL (80-100); Mean Platelet Volume 9.7 fL (9.1-12.4); NEUTROPHILS ABSOLUTE AUTO 3.82 K/mm3 (1.96-9.15); NEUTROPHILS PERCENT AUTO 58 % (41-73); Platelet Count 309 K/mm3 (150-400); RDW Coefficient Variation 13.8 % (11.7-14.2); RDW Standard Deviation 50.4 fL (35.1-46.3); Red Blood Cell Count 3.58 M/mm3 (3.80-5.20); White Blood Cell Count 6.56 K/mm3 (4.00-11.30)
[2020-11-27 19:12] LABS: International Normalized Ratio 1.17; Prothrombin Time Results 12.4 Sec (9.7-11.5)
[2020-11-27 19:38] LABS: Troponin I 0.148 ng/mL (0.000-0.040)
[2020-11-27 19:40] LABS: Alanine Aminotransfer (ALT/SGP 26 U/L (12-78); Albumin, Blood 3.3 g/dL (3.4-5.0); Alk Phos 62 U/L (50-136); Anion Gap 4 mmol/L (6-16); Aspartate Aminotrans (AST/SGOT 34 U/L (12-37); Bilirubin, Total 0.9 mg/dL (0.1-1.0); Blood Urea Nitrogen 12 mg/dL (8-24); Bun/Creatinine Ratio 15.2 (12.0-20.0); CO2, Blood 31 mmol/L (21-32); Calcium, Blood 8.6 mg/dL (8.5-10.1); Chloride, Blood 103 mmol/L (98-108); Creatinine, Blood 0.79 mg/dL (0.40-1.00); Globulin, Blood 3.3 g/dL (2.2-4.0); Glomerular Filtration Rate >60 (60-); Glucose, Blood 90 mg/dL (70-99); Potassium, Blood 3.7 mmol/L (3.5-5.5); Sodium, Blood 138 mmol/L (136-145); Total Protein, Blood 6.6 g/dL (6.4-8.2)
== END 2020-11-27 22:00 | disposition home or self-care (01) ==
LOC: ER 18:08
PROVIDERS: Emergency Medicine
DX: R07.89 Other chest pain (principal); R51.9 Headache, unspecified; Z79.01 Long term (current) use of anticoagulants; Z79.899 Other long term (current) drug therapy
CPT/HCPCS: 71045; 80053; 83690; 84484; 85025; 85610; 93005; 93010; 96374; 96375; 99285-25; J2765; J3010

== ENCOUNTER → 2021-02-20 | Outpatient (CLI) | payer MEDICARE, OTHER ==
[~2021-02-20] MED LIST changes: +ATOR80 PO; +Aspir 8181 MG PO; +B-12500 MC2 PO; +BIOTIN1 MG PO; +CYAN1000I IM; +DONE5 PO; +DONEPEZIL HCL5 M2 PO; +Hydroxychloroq200 MG PO; +IMURAN50 MG PO; +IRON18 MG PO; +LEVSOD25 PO; +ONDA4ODT MM; +POTA8; +Potassium Chlo20 ME1 PO; +THERA-D2000 UNIT PO; +TOCO1000 PO; +TRAZ150T57 PO; +VENL37.5ER PO; +XARELTO20 MG PO
[2021-02-23 10:01] LABS: Stool Occult Bld Immuno 1 Positive (NEGATIVE)
== END | disposition home or self-care (01) ==
LOC: LAB SHORT 11:31 → LAB 11:31
PROVIDERS: Internal Medicine Gastroenterology
DX: D64.9 Anemia, unspecified (principal)
CPT/HCPCS: 82274

== ENCOUNTER 2021-03-15 07:51 | Day surgery (SDC) | payer MEDICARE, OTHER ==
[~2021-03-15] VITALS: Ht 157.5 cm; Wt 74.5 kg
[~2021-03-15 07:51] MED LIST changes: -ATOR80 PO; -Aspir 8181 MG PO; -B-12500 MC2 PO; -BIOTIN1 MG PO; -CYAN1000I IM; -DONE5 PO; -DONEPEZIL HCL5 M2 PO; -Dapsone25 MG PO; -EUTHYROX25 MCG PO; -FOSAMAX70 MG PO; -FUROSEMIDE40 MG PO; -GABA300 PO; -Hydroxychloroq200 MG PO; -IMURAN50 MG PO; -IRON18 MG PO; -K-Dur20 MEQ PO; -LEVSOD25 PO; -ONDA4ODT MM; -Omeprazole20 M1 PO; -POTA8; -Potassium Chlo20 ME1 PO; -SPIRONOLACTONE25 MG PO; -THERA-D2000 UNIT PO; -TOCO1000 PO; -TRAZ100 PO; -TRAZ150T57 PO; -VENL37.5ER PO; -XARELTO20 MG PO
[2021-03-19] MEDS ORDERED: SPIRONOLACTONE25 MG PO (18:42)
[2021-03-19] MEDS ORDERED: AZAT50 PO (18:43)
[2021-03-19] MEDS ORDERED: EUTHYROX25 MCG PO (18:43)
[2021-03-19] MEDS ORDERED: XARELTO20 MG PO (18:43)
[2021-03-19] MEDS ORDERED: K-Dur20 MEQ PO (18:43)
[2021-03-19] MEDS ORDERED: Omeprazole20 M1 PO (18:44)
[2021-03-19] MEDS ORDERED: DONEPEZIL HCL5 M2 PO (18:44)
[2021-03-19] MEDS ORDERED: GABA300 PO (18:44)
[2021-03-19] MEDS ORDERED: TRAZ100 PO (18:45)
[2021-03-19] MEDS ORDERED: FUROSEMIDE40 MG PO (18:46)
[2021-03-19] MEDS ORDERED: TRAZ50 PO (18:46)
[2021-03-19] MEDS ORDERED: Dapsone25 MG PO (18:46)
[2021-03-19] MEDS ORDERED: FOSAMAX70 MG PO (18:47)
[2021-03-19] MEDS ORDERED: Inderal40 MG PO (18:47)
[2021-03-19] MEDS ORDERED: HYDSUL200 PO (18:47)
[2021-03-19] MEDS ORDERED: THERA-D2000 UNIT PO (23:14)
[2021-03-19] MEDS ORDERED: TOCO1000 PO (23:14)
[2021-03-19] MEDS ORDERED: CYAN1000I IM (23:15)
== END 2021-03-15 10:55 | disposition home or self-care (01) ==
LOC: ORSCSDS 07:51
PROVIDERS: Internal Medicine Gastroenterology
PROC: 0D757ZZ Dilation of Esophagus, Via Natural or Artificial Opening (ICD-10-PCS; principal; 2021-03-15 09:00)
PROC: 0DBK8ZX Excision of Ascending Colon, Via Natural or Artificial Opening Endoscopic, Diagnostic (ICD-10-PCS; principal; 2021-03-15 09:00)
PROC: 0DB58ZX Excision of Esophagus, Via Natural or Artificial Opening Endoscopic, Diagnostic (ICD-10-PCS; principal; 2021-03-15 09:00)
PROC: 0DB78ZX Excision of Stomach, Pylorus, Via Natural or Artificial Opening Endoscopic, Diagnostic (ICD-10-PCS; principal; 2021-03-15 09:00)
PROC: 0DBN8ZX Excision of Sigmoid Colon, Via Natural or Artificial Opening Endoscopic, Diagnostic (ICD-10-PCS; principal; 2021-03-15 09:00)
PROC: 0DBP8ZX Excision of Rectum, Via Natural or Artificial Opening Endoscopic, Diagnostic (ICD-10-PCS; principal; 2021-03-15 09:00)
PROC: 0DBM8ZX Excision of Descending Colon, Via Natural or Artificial Opening Endoscopic, Diagnostic (ICD-10-PCS; principal; 2021-03-15 09:00)
DX: D50.9 Iron deficiency anemia, unspecified (principal); K92.1 Melena; Z86.010 Personal history of colon polyps; R13.14 Dysphagia, pharyngoesophageal phase; K22.70 Barrett's esophagus without dysplasia; D12.5 Benign neoplasm of sigmoid colon; D12.4 Benign neoplasm of descending colon; D12.2 Benign neoplasm of ascending colon; K57.30 Diverticulosis of large intestine without perforation or abscess without bleeding; Z86.718 Personal history of other venous thrombosis and embolism; Z79.01 Long term (current) use of anticoagulants; M32.9 Systemic lupus erythematosus, unspecified; Z79.899 Other long term (current) drug therapy
CPT/HCPCS: 88305; 88342; A9270; J0330; J0461; J2405; J2704; J7120

== ENCOUNTER 2021-05-09 14:44 | Emergency (ER) | payer MEDICARE, OTHER ==
[~2021-05-09] VITALS: Ht 154.9 cm; Wt 75.8 kg
[~2021-05-09 14:44] MED LIST changes: +Aspir 8181 MG PO; +CYAN1000I IM; +DONEPEZIL HCL5 M2 PO; +Dapsone25 MG PO; +EUTHYROX25 MCG PO; +FOSAMAX70 MG PO; +FUROSEMIDE40 MG PO; +GABA300 PO; +K-Dur20 MEQ PO; +Omeprazole20 M1 PO; +SPIRONOLACTONE25 MG PO; +THERA-D2000 UNIT PO; +TOCO1000 PO; +TRAZ100 PO; +XARELTO20 MG PO
[2021-05-09] MEDS ORDERED: ONDA4ODT MM (16:50)
[2021-05-09] MEDS ORDERED: Norco 5-325 Ta1 EACH PO (16:50)
== END 2021-05-09 18:00 | disposition home or self-care (01) ==
LOC: ER 14:44
DX: S00.81XA Abrasion of other part of head, initial encounter (principal); S60.511A Abrasion of right hand, initial encounter; Z79.899 Other long term (current) drug therapy; Z79.82 Long term (current) use of aspirin; W01.198A Fall on same level from slipping, tripping and stumbling with subsequent striking against other object, initial encounter
CPT/HCPCS: 12001; 70450; 72125; 73130; 99284-25

== ENCOUNTER 2021-06-12 14:46 | Observation (INO) | payer MEDICARE, OTHER ==
[~2021-06-12] VITALS: Ht 160 cm; Wt 80.0 kg
[~2021-06-12 14:46] MED LIST changes: +ONDA4ODT MM
[2021-06-12] MEDS ORDERED: OMEP20ER PO (15:11)
[2021-06-12] MEDS ORDERED: DONE5 PO (15:12)
[2021-06-12] MEDS ORDERED: FURO40 PO (15:12)
[2021-06-12] MEDS ORDERED: TRAZ150T57 PO (15:13)
[2021-06-12] MEDS ORDERED: POTA8 (15:13)
[2021-06-12] MEDS ORDERED: XARELTO20 MG PO (15:14)
[2021-06-12] MEDS ORDERED: LEVSOD25 PO (15:14)
[2021-06-12] MEDS ORDERED: SPIR25 PO (15:15)
[2021-06-12] MEDS ORDERED: HYDSUL200 PO (15:15)
[2021-06-12 15:16] LABS: BASOPHILS ABSOLUTE AUTO 0.04 K/mm3 (0.00-0.23); BASOPHILS PERCENT AUTO 1 % (0-2); EOSINOPHILS ABSOLUTE AUTO 0.06 K/mm3 (0.00-0.68); EOSINOPHILS PERCENT AUTO 1 % (0-6); Hematocrit 35.2 % (33.0-51.0); Hemoglobin 11.2 g/dL (11.5-16.0); IMMATURE GRAN ABSOLUTE AUTO 0.02 K/mm3 (0.00-0.10); IMMATURE GRAN PERCENT AUTO 0 % (0-1); LYMPHOCYTES ABSOLUTE AUTO 1.37 K/mm3 (0.84-5.20); LYMPHOCYTES PERCENT AUTO 26 % (21-46); MONOCYTES ABSOLUTE AUTO 0.41 K/mm3 (0.16-1.47); MONOCYTES PERCENT AUTO 8 % (4-13); Mean Corpuscular HGB 29.4 pg (26.0-34.0); Mean Corpuscular HGB Conc 31.8 g/dL (31.5-36.5); Mean Corpuscular Volume 92 fL (80-100); Mean Platelet Volume 10.2 fL (9.1-12.4); NEUTROPHILS ABSOLUTE AUTO 3.47 K/mm3 (1.96-9.15); NEUTROPHILS PERCENT AUTO 65 % (41-73); Platelet Count 201 K/mm3 (150-400); RDW Coefficient Variation 14.1 % (11.7-14.2); RDW Standard Deviation 47.7 fL (35.1-46.3); Red Blood Cell Count 3.81 M/mm3 (3.80-5.20); White Blood Cell Count 5.37 K/mm3 (4.00-11.30)
[2021-06-12] MEDS ORDERED: GABA300 PO (15:16)
[2021-06-12] MEDS ORDERED: AZAT50 PO (15:16)
[2021-06-12] MEDS ORDERED: ALEN70 PO (15:17)
[2021-06-12 15:25] LABS: Alanine Aminotransfer (ALT/SGP 20 U/L (12-78); Albumin, Blood 3.8 g/dL (3.4-5.0); Albumin/Globulin Ratio 1.2 (0.8-1.8); Alk Phos 66 U/L (50-136); Anion Gap 3 mmol/L (6-16); Aspartate Aminotrans (AST/SGOT 30 U/L (12-37); Bilirubin, Total 0.9 mg/dL (0.1-1.0); Blood Urea Nitrogen 17 mg/dL (8-24); Bun/Creatinine Ratio 20.1 (12.0-20.0); CO2, Blood 33 mmol/L (21-32); Calcium, Blood 8.9 mg/dL (8.5-10.1); Chloride, Blood 99 mmol/L (98-108); Creatinine, Blood 0.85 mg/dL (0.40-1.00); Globulin, Blood 3.1 g/dL (2.2-4.0); Glomerular Filtration Rate >60 (60-); Glucose, Blood 90 mg/dL (70-99); Potassium, Blood 4.2 mmol/L (3.5-5.5); Sodium, Blood 135 mmol/L (136-145); Total Protein, Blood 6.9 g/dL (6.4-8.2)
[2021-06-12 15:55] LABS: International Normalized Ratio 0.95; Prothrombin Time Results 10.3 Sec (9.7-11.5)
[2021-06-12] MEDS ORDERED: Potassium Chlo20 ME1 PO (17:24)
[2021-06-12] MEDS ORDERED: TRAZ100 PO (17:24)
[2021-06-12] MEDS ORDERED: IMURAN50 MG PO (17:26)
[2021-06-12] MEDS ORDERED: Hydroxychloroq200 MG PO (17:26)
--- NOTE | 2021-06-12 20:00 | NUR ---
PATIENT ARRIVED TO THE ROOM VIA GURNEY, WAS ABLE TO TRANSFER SELF TO THE BED VERY SLOWLY. LIGHTHEAD UPON MOVING, HAD TO TAKE STEPS SLOW. STATES SHE HAS BEEN GETTING DIZZY OFTEN. ADMITTED FOR POSSIBLE STROKE. STARTED TO HAVE CHEST PAIN THIS AFTERNOON AROUND 1400, THE LEFT SIDED WEAKNESS, BLURRED VISION, AND LEFT FACIAL DROOP. VS ALL WNL, D-DIMER ELEVATED TO 0.82. CT, XRAY, AND CARODID ALL NEGATIVE. VS WNL, AFEBRILE. NO CHEST PAIN AT THIS TIME. DOES REPORT HEADACHE RELATED TO THE NITRO THAT IS ON THE LEFT SIDE OF THE HEAD DOWN THE JAW AND INTO THE SHOULDERS. NO NUBMNESS OR TINGLING. DOES HAVE DIFFICULTY WITH FINE MOTER SKILLS ON THE LEFT HAND ONLY. REGULAR BM, AND URINE OUTPUT. GOOD APPETITE. ORIENTED TO ROOM, ADMISSION COMPLETED.
[2021-06-12] MEDS ORDERED: IRON18 MG PO (20:10)
[2021-06-12] MEDS ORDERED: B-12500 MC2 PO (20:15)
[2021-06-12] MEDS ORDERED: BIOTIN1 MG PO (20:16)
[2021-06-12] MEDS ORDERED: TRAZ50 PO ×2 (20:17→20:18)
--- NOTE | 2021-06-12 21:09 | NUR ---
PATIENT OUT TO CT FOR PE STUDY.
[2021-06-12 21:13] LABS: Source, Urine Clean Catch
[2021-06-12 21:16] LABS: Bilirubin, Urine Neg (Neg); Blood, Urine Neg (Neg); Glucose Qualitative, Urine Neg (Neg); Ketones, Urine Neg (Neg); Leukocyte Esterase, Urine 1+ (Neg); Nitrite, Urine Neg (Neg); Protein, Urine Neg (Neg); Urobilinogen, Urine NORM (Normal)
[2021-06-12 21:20] LABS: Color, Urine Yellow (P-Yellow)
[2021-06-12 21:22] LABS: Appearance, Urine Clear (Clear); Bacteria Not Seen /hpf; Red Blood Cells, Urine Not Seen /hpf (0-2); Squamous Epithelial Cells Not Seen /hpf (Few); White Blood Cells, Urine Rare /hpf (0-5)
--- NOTE | 2021-06-12 22:00 | NUR ---
RECEIVED CALL FROM TELE REPORTING SHE HAD A PROLONGED QT WAVE WHILE SHE WAS IN CT. SHE IS NOW BACK IN THE ROOM AND IT IS BACK TO NORMAL. STILL REPORTS HEADACHE. DID CALL HOSPITALIST AND GOT ORDER FOR TORDOL. ASSISTED TO BSC, BM NOTED. IVF GIVEN, PM ADMINISTERED. TORDOL GIVEN. WILL RE-ASSESS.
[2021-06-12 23:04] LABS: Troponin I 0.027 ng/mL (0.000-0.040)
--- NOTE | 2021-06-13 00:27 | NUR ---
CONTINUES TO HAVE A HEADACHE, REQUEST THAT NITRO PATCH BE REMOVED TO SEE IF THAT HELPS. LAST TIME SHE HAD NITRO SHE GOT A HEADACHE AND THREW UP FOR THREE DAYS. SHE DOES NOT WANT TO GO THROUGH THAT AGAIN. REMOVED PATCH AND MEDICATED WITH TYLENOL.
--- NOTE | 2021-06-13 03:05 | NUR ---
GAVE A SNACK EARLIER IN HOPES IT MIGHT HELP THE HEADACHE. SHE DOES FEEL A LITTLE BETTER AFTER THE TYLENOL BUT THE HEADACHE IS NOT COMPLETLY RESOLVED. NO CHEST PAIN CURRENTLY. WILL CONTINUE TO MONITOR.
[2021-06-13 07:15] LABS: BASOPHILS ABSOLUTE AUTO 0.03 K/mm3 (0.00-0.23); BASOPHILS PERCENT AUTO 1 % (0-2); EOSINOPHILS ABSOLUTE AUTO 0.05 K/mm3 (0.00-0.68); EOSINOPHILS PERCENT AUTO 1 % (0-6); Hematocrit 31.5 % (33.0-51.0); Hemoglobin 9.9 g/dL (11.5-16.0); IMMATURE GRAN ABSOLUTE AUTO 0.01 K/mm3 (0.00-0.10); IMMATURE GRAN PERCENT AUTO 0 % (0-1); LYMPHOCYTES ABSOLUTE AUTO 1.18 K/mm3 (0.84-5.20); LYMPHOCYTES PERCENT AUTO 31 % (21-46); MONOCYTES PERCENT AUTO 10 % (4-13); Mean Corpuscular HGB 29.2 pg (26.0-34.0); Mean Corpuscular HGB Conc 31.4 g/dL (31.5-36.5); Mean Corpuscular Volume 93 fL (80-100); NEUTROPHILS ABSOLUTE AUTO 2.19 K/mm3 (1.96-9.15); NEUTROPHILS PERCENT AUTO 57 % (41-73); Platelet Count 172 K/mm3 (150-400); RDW Coefficient Variation 13.9 % (11.7-14.2); RDW Standard Deviation 47.1 fL (35.1-46.3); Red Blood Cell Count 3.39 M/mm3 (3.80-5.20); White Blood Cell Count 3.86 K/mm3 (4.00-11.30)
[2021-06-13 07:41] LABS: Albumin, Blood 3.1 g/dL (3.4-5.0); Albumin/Globulin Ratio 1.1 (0.8-1.8); Bilirubin, Total 0.6 mg/dL (0.1-1.0); Bun/Creatinine Ratio 18.5 (12.0-20.0); Calcium, Blood 8.4 mg/dL (8.5-10.1); Creatinine, Blood 1.08 mg/dL (0.40-1.00); Globulin, Blood 2.8 g/dL (2.2-4.0); Potassium, Blood 3.7 mmol/L (3.5-5.5); Total Protein, Blood 5.9 g/dL (6.4-8.2); Troponin I 0.031 ng/mL (0.000-0.040)
--- NOTE | 2021-06-13 07:52 | NUR ---
SHIFT SUMMARY: PATIENT WAS ADMITTED TO THE FLOOR FOR CHEST PAIN AND LEFT SIDED WEAKNESS LAST NIGHT. AOX3. STATES SHE STARTED TO HAVE CHEST PAIN AND NUMBNESS TO THE LEFT ARM THAT CONTINUED TO PROGRESS. WHEN SHE GOT TO THE FLOOR SHE HAS LEFT FACIAL DROOP, LEFT DESK ASSISTANT, DORSAL FLEXTION AND EXTENTION WEAKNESS. FINE MOTER SKILLS WERE OFF ON THE LEFT HAND COMPARED TO THE RIGHT. HEADACHE ON LEFT SIDE OF HEAD WITH BLURRED VISION DOWN TO HER JAW BONE. TROPONIN'S NEGATIVE. D-DIMER SLIGHTLY ELEVATED. VITALS HAVE BEEN STABLE. WHEN DOWN IN CT GOT CALL FROM TELE WHO REPORTED THAT SHE HAD PROLONGED QT WAVE WHICH RESOLVED WHEN SHE GOT BACK TO THE ROOM. NITRO PATCH WAS REMOVED EARLY DUE TO HEADACHE GETTING TO SEVERE. DOES HAVE HISTORY OF REACTION TO NITRO THAT CONSISTED OF N/V FOR 3 DAYS. IS ABLE TO GET UP TO BSC WITH SBA. CT, XRAY, AND CARODID TEST WERE ALL NEGATIVE. DID NOT SLEEP DUE TO HEADACHE WHICH IS STILL PRESENT THIS AM. REPORT GIVEN TO DAYSHIFT. CALL LIGHT IN REACH.
--- NOTE | 2021-06-13 12:35 | NUR ---
Patient said that at first the bowel movement was hard then loose she said it felt like a large size.
--- NOTE | 2021-06-13 19:31 | NUR ---
SHIFT SUMMARY: NO ACUTE EVENTS. NO EVENTS ON TELEMETRY, SR WITH FIRST DEGREE AND BBB, RATE 70'S. DENIED CHEST PAIN. C/O PAIN IN L HEAD AND L NECK; MEDICATED PER EMAR WITH LITTLE RELIEF. IMITREX AND VENLAFAXINE INEFFECTIVE. C/O CONSTIPATION; BOWEL MEDS GIVEN WITH GOOD RESULT. GETTING UP TO BSC WITH SBA. WORKED WITH PT/OT TODAY. POLST UPDATED, CODE STATUS CHANGED TO DNR, PURPLE BAND IN PLACE. COPY OF POLST IN CHART, ORIGINAL FAXED TO REGISTRY THEN GIVEN TO PATIENT.
--- NOTE | 2021-06-14 04:10 | NUR ---
SUMMARY: PT A/OX4, CALLS APPROPRIATELY AND IS PLEASANT/COOPERATIVE W/CARE. SHE CONT'S TO HAVE SLIGHT L.SIDE WEAKNESS, L.PRONATOR DRIFT AND LACKS COORDINATION OF HER L.ARM SO IS UP W/1PA AND FWW TO [facility]. MIGRAINE PERSISTS BUT SHE RECIEVED SOME RELIEF W/IV TORADOL PRN. SCD'S APPLIED AND PT REPORTED IMPROVEMENT IN RESTLESS LEGS AND BLE EDEMA. SHE REFUSED PLAQUENIL D/T "NO LONGER TAKING IT FOR LUPUS". PT IS NSR AT 60'S-70'S BPM W/OCC 1ST DEGREE AND BBB, QT PROLONGATION REMAINS RESOLVED. NO ACUTE CHANGES, VSS/AFEBRILE. POSSIBLE D/C TODAY. WCTM AND REPORT TO DAY RN.
[2021-06-14 07:38] LABS: BASOPHILS ABSOLUTE AUTO 0.02 K/mm3 (0.00-0.23); BASOPHILS PERCENT AUTO 0 % (0-2); EOSINOPHILS ABSOLUTE AUTO 0.06 K/mm3 (0.00-0.68); EOSINOPHILS PERCENT AUTO 1 % (0-6); Hematocrit 32.7 % (33.0-51.0); Hemoglobin 10.3 g/dL (11.5-16.0); IMMATURE GRAN ABSOLUTE AUTO 0.01 K/mm3 (0.00-0.10); IMMATURE GRAN PERCENT AUTO 0 % (0-1); LYMPHOCYTES ABSOLUTE AUTO 1.18 K/mm3 (0.84-5.20); LYMPHOCYTES PERCENT AUTO 26 % (21-46); MONOCYTES ABSOLUTE AUTO 0.39 K/mm3 (0.16-1.47); MONOCYTES PERCENT AUTO 9 % (4-13); Mean Corpuscular HGB 29.2 pg (26.0-34.0); Mean Corpuscular HGB Conc 31.5 g/dL (31.5-36.5); Mean Corpuscular Volume 93 fL (80-100); Mean Platelet Volume 9.8 fL (9.1-12.4); NEUTROPHILS ABSOLUTE AUTO 2.83 K/mm3 (1.96-9.15); NEUTROPHILS PERCENT AUTO 63 % (41-73); Platelet Count 160 K/mm3 (150-400); RDW Coefficient Variation 13.7 % (11.7-14.2); RDW Standard Deviation 46.9 fL (35.1-46.3); Red Blood Cell Count 3.53 M/mm3 (3.80-5.20); White Blood Cell Count 4.49 K/mm3 (4.00-11.30)
[2021-06-14 07:56] LABS: Alanine Aminotransfer (ALT/SGP 21 U/L (12-78); Albumin, Blood 3.1 g/dL (3.4-5.0); Albumin/Globulin Ratio 1.2 (0.8-1.8); Alk Phos 53 U/L (50-136); Anion Gap 4 mmol/L (6-16); Aspartate Aminotrans (AST/SGOT 20 U/L (12-37); Bilirubin, Total 0.7 mg/dL (0.1-1.0); Blood Urea Nitrogen 17 mg/dL (8-24); Bun/Creatinine Ratio 19.1 (12.0-20.0); CO2, Blood 30 mmol/L (21-32); Calcium, Blood 8.4 mg/dL (8.5-10.1); Chloride, Blood 105 mmol/L (98-108); Creatinine, Blood 0.89 mg/dL (0.40-1.00); Globulin, Blood 2.6 g/dL (2.2-4.0); Glomerular Filtration Rate >60 (60-); Glucose, Blood 89 mg/dL (70-99); Potassium, Blood 4.2 mmol/L (3.5-5.5); Sodium, Blood 139 mmol/L (136-145); Total Protein, Blood 5.7 g/dL (6.4-8.2)
[2021-06-14] MEDS ORDERED: TRAZ100 PO (13:18)
[2021-06-14] MEDS ORDERED: ATOR80 PO (13:19)
[2021-06-14] MEDS ORDERED: CLOP75 PO (13:19)
[2021-06-14] MEDS ORDERED: VENL37.5ER PO (13:20)
--- NOTE | 2021-06-14 15:25 | NUR ---
PATIENT DISCHARGED TO HOME ACCOMPANIED BY DAUGHTER. IV SALINE LOCK REMOVED WITHOUT INCIDENT. VERBALIZED UNDERSTANDING OF D/C INSTRUCTIONS, NEW MEDICATIONS. FOLLOW UP APPOINTMENT MADE. OFF UNIT VIA W/C AT 1441, WITH DAUGHTER.
--- NOTE | 2021-06-14 16:25 | NUR ---
DR DUMONT CALLED AFTER PATIENT DISCHARGED HOME AND REPORTED PLAVIX WAS ONLY TO BE FOR 21 DAYS BUT HE FILLED FOR 30 DAYS PLUS 1 REFILL. CALLED BOTH PT AND PT DAUGHTER WHO DID NOT ANSWER THE PHONE BUT MESSAGE LEFT TO ONLY TAKE FOR [address] DUMONT. ALSO CALLED AND SPOKE WITH PHARMACIST AT [facility] IN [place] WHO REPORTS PT HAS NOT PICKED UP MEDICATIONS BUT WILL MAKE THE CHANGE AND NOTIFY PATIENT OF THE CHANGE.
== END 2021-06-14 14:41 | disposition home or self-care (01) ==
LOC: ER 14:46 → MEDS 14:47
PROVIDERS: Emergency Medicine; Family Medicine; ADMIT Internal Medicine
DX: I63.9 Cerebral infarction, unspecified (principal); R29.810 Facial weakness; G81.94 Hemiplegia, unspecified affecting left nondominant side; I44.0 Atrioventricular block, first degree; G43.909 Migraine, unspecified, not intractable, without status migrainosus; G47.00 Insomnia, unspecified; E03.9 Hypothyroidism, unspecified; E78.5 Hyperlipidemia, unspecified; I10 Essential (primary) hypertension; M81.0 Age-related osteoporosis without current pathological fracture; L93.0 Discoid lupus erythematosus; M79.7 Fibromyalgia; M06.9 Rheumatoid arthritis, unspecified; K21.9 Gastro-esophageal reflux disease without esophagitis; R07.89 Other chest pain; Z91.81 History of falling; Z79.82 Long term (current) use of aspirin; Z86.73 Personal history of transient ischemic attack (TIA), and cerebral infarction without residual deficits; Z86.711 Personal history of pulmonary embolism; Z88.0 Allergy status to penicillin; Z88.8 Allergy status to other drugs, medicaments and biological substances; Z88.1 Allergy status to other antibiotic agents; Z87.81 Personal history of (healed) traumatic fracture; Z66 Do not resuscitate
CPT/HCPCS: 36415; 70450; 70551; 71045; 71260; 80053; 81001; 82550; 84484; 85025; 85379; 85610; 93005; 93010; 93306; 93880; 96374; 96375; 96376; 97116; 97162; 97165; 97530; 99285-25; A9270; G0378; J1885; J7030; J7500; Q9967

== ENCOUNTER 2022-05-24 21:46 | Emergency (ER) | payer MEDICARE, OTHER ==
[~2022-05-24] VITALS: Ht 154.9 cm; Wt 79.8 kg
[~2022-05-24 21:46] MED LIST changes: +ATOR80 PO; +B-12500 MC2 PO; +BIOTIN1 MG PO; +DONE5 PO; +Hydroxychloroq200 MG PO; +IMURAN50 MG PO; +IRON18 MG PO; +LEVSOD25 PO; +POTA8; +PROP60 PO; +Potassium Chlo20 ME1 PO; +TRAZ150T57 PO; +VENL37.5ER PO
[2022-05-24 23:23] LABS: BASOPHILS ABSOLUTE AUTO 0.01 K/mm3 (0.00-0.23); BASOPHILS PERCENT AUTO 0 % (0-2); EOSINOPHILS PERCENT AUTO 0 % (0-6); Hematocrit 31.6 % (33.0-51.0); IMMATURE GRAN ABSOLUTE AUTO 0.06 K/mm3 (0.00-0.10); IMMATURE GRAN PERCENT AUTO 1 % (0-1); LYMPHOCYTES ABSOLUTE AUTO 0.74 K/mm3 (0.84-5.20); LYMPHOCYTES PERCENT AUTO 12 % (21-46); MONOCYTES ABSOLUTE AUTO 0.72 K/mm3 (0.16-1.47); MONOCYTES PERCENT AUTO 12 % (4-13); Mean Corpuscular HGB 29.9 pg (26.0-34.0); Mean Corpuscular HGB Conc 31.6 g/dL (31.5-36.5); Mean Corpuscular Volume 95 fL (80-100); Mean Platelet Volume 10.1 fL (9.1-12.4); NEUTROPHILS ABSOLUTE AUTO 4.67 K/mm3 (1.96-9.15); NEUTROPHILS PERCENT AUTO 75 % (41-73); Platelet Count 188 K/mm3 (150-400); RDW Standard Deviation 52.1 fL (35.1-46.3); Red Blood Cell Count 3.34 M/mm3 (3.80-5.20)
[2022-05-24 23:45] LABS: Albumin, Blood 3.5 g/dL (3.4-5.0); Albumin/Globulin Ratio 1.2 (0.8-1.8); Bilirubin, Total 0.8 mg/dL (0.1-1.0); Bun/Creatinine Ratio 26.3 (12.0-20.0); Calcium, Blood 8.9 mg/dL (8.5-10.1); Creatinine, Blood 0.99 mg/dL (0.40-1.00); Potassium, Blood 4.7 mmol/L (3.5-5.5); Total Protein, Blood 6.5 g/dL (6.4-8.2)
[2022-05-25 00:33] LABS: Percent Saturation 20.4 % (15.0-50.0)
[2022-05-25] MEDS ORDERED: Percocet 5-3251 EACH PO (02:58)
== END 2022-05-25 03:17 | disposition home or self-care (01) ==
LOC: ER 21:46
PROVIDERS: Student in an Organized Health Care Education/Training Program
DX: S52.001A Unspecified fracture of upper end of right ulna, initial encounter for closed fracture (principal); S90.01XA Contusion of right ankle, initial encounter; S70.01XA Contusion of right hip, initial encounter; W18.30XA Fall on same level, unspecified, initial encounter; R55 Syncope and collapse; Z88.0 Allergy status to penicillin; Z88.8 Allergy status to other drugs, medicaments and biological substances; Z79.899 Other long term (current) drug therapy
CPT/HCPCS: 29105; 70450; 72125; 73080; 73502; 73610; 80053; 82728; 83540; 83550; 84484; 85025; 93005; 93010; 96374; 99285-25; J1885

== ENCOUNTER 2023-01-29 06:28 | Emergency (ER) | payer OTHER ==
[~2023-01-29] VITALS: Ht 160 cm; Wt 81.7 kg
[~2023-01-29 06:28] MED LIST changes: +Percocet 5-3251 EACH PO
[2023-01-29 07:04] LABS: BASOPHILS ABSOLUTE AUTO 0.02 K/mm3 (0.00-0.23); BASOPHILS PERCENT AUTO 0 % (0-2); EOSINOPHILS ABSOLUTE AUTO 0.04 K/mm3 (0.00-0.68); EOSINOPHILS PERCENT AUTO 1 % (0-6); Hematocrit 30.4 % (33.0-51.0); Hemoglobin 9.9 g/dL (11.5-16.0); IMMATURE GRAN ABSOLUTE AUTO 0.06 K/mm3 (0.00-0.10); IMMATURE GRAN PERCENT AUTO 1 % (0-1); LYMPHOCYTES ABSOLUTE AUTO 0.63 K/mm3 (0.84-5.20); LYMPHOCYTES PERCENT AUTO 13 % (21-46); MONOCYTES ABSOLUTE AUTO 0.92 K/mm3 (0.16-1.47); MONOCYTES PERCENT AUTO 18 % (4-13); Mean Corpuscular HGB 29.2 pg (26.0-34.0); Mean Corpuscular HGB Conc 32.6 g/dL (31.5-36.5); Mean Corpuscular Volume 90 fL (80-100); Mean Platelet Volume 11.6 fL (9.1-12.4); NEUTROPHILS ABSOLUTE AUTO 3.38 K/mm3 (1.96-9.15); NEUTROPHILS PERCENT AUTO 67 % (41-73); Platelet Count 95 K/mm3 (150-400); RDW Coefficient Variation 18.3 % (11.7-14.2); RDW Standard Deviation 59.2 fL (35.1-46.3); Red Blood Cell Count 3.39 M/mm3 (3.80-5.20); White Blood Cell Count 5.05 K/mm3 (4.00-11.30)
[2023-01-29 08:40] LABS: Chloride (POC) 95 mmol/L (98-108); Creatinine (POC) 1.3 mg/dL (0.6-1.0); Glucose (ISTAT POC) 95 mg/dL (70-99); Hemoglobin (POC) 9.9 g/dL (12.0-16.0); Potassium (POC) 4.3 mmol/L (3.5-5.5); Sodium (POC) 131 mmol/L (135-148); Total CO2 (POC) 26 mmol/L (21-32)
[2023-01-29 09:09] LABS: Influenza A, PCR NEGATIVE (NEGATIVE); Influenza B, PCR NEGATIVE (NEGATIVE); Resp Syncytial Virus, PCR NEGATIVE (NEGATIVE); SARS-Cov-2 (COVID-19) PCR, MMC NEGATIVE (NEGATIVE)
[2023-01-29 09:11] LABS: Source, Urine Clean Catch
[2023-01-29 09:13] LABS: Appearance, Urine Hazy (Clear); Bilirubin, Urine Neg (Neg); Blood, Urine Neg (Neg); Color, Urine Yellow (P-Yellow); Glucose Qualitative, Urine Neg (Neg); Ketones, Urine Neg (Neg); Leukocyte Esterase, Urine 3+ (Neg); Nitrite, Urine Pos (Neg); Protein, Urine 1+ (Neg); Urobilinogen, Urine NORM (Normal)
[2023-01-29 09:36] LABS: Red Blood Cells, Urine Not Seen /hpf (0-2); Squamous Epithelial Cells Few /hpf (Few)
[2023-01-29 09:37] LABS: Bacteria Rare /hpf
[2023-01-29 12:12] LABS: Albumin/Globulin Ratio 0.7 (0.8-1.8); Bilirubin, Total 0.9 mg/dL (0.1-1.0); Bun/Creatinine Ratio 21.2 (12.0-20.0); Calcium, Blood 7.3 mg/dL (8.5-10.1); Creatinine, Blood 1.13 mg/dL (0.40-1.00); Globulin, Blood 2.8 g/dL (2.2-4.0); Magnesium, Blood 2.1 mg/dL (1.6-2.4); Potassium, Blood 4.2 mmol/L (3.5-5.5); Total Protein, Blood 4.8 g/dL (6.4-8.2)
== END 2023-01-29 17:14 | disposition home or self-care (01) ==
LOC: ER 06:28
PROVIDERS: Emergency Medicine
DX: R53.1 Weakness (principal); Z88.0 Allergy status to penicillin; Z88.8 Allergy status to other drugs, medicaments and biological substances; Z79.899 Other long term (current) drug therapy; Z79.82 Long term (current) use of aspirin; Z20.822 Contact with and (suspected) exposure to COVID-19
CPT/HCPCS: 0241U; 36415; 80047; 80053; 81001; 83735; 85014; 85025; 87077; 87086; 87186; 93005; 93010; A9270; J0696

== ENCOUNTER 2023-02-06 17:24 | Inpatient (IN) | payer OTHER ==
[~2023-02-06] VITALS: Ht 152.4 cm; Wt 104.8 kg
[2023-02-06 18:01] LABS: BASOPHILS ABSOLUTE AUTO 0.02 K/mm3 (0.00-0.23); BASOPHILS PERCENT AUTO 0 % (0-2); EOSINOPHILS ABSOLUTE AUTO 0.02 K/mm3 (0.00-0.68); EOSINOPHILS PERCENT AUTO 0 % (0-6); Hematocrit 36.3 % (33.0-51.0); Hemoglobin 11.5 g/dL (11.5-16.0); IMMATURE GRAN ABSOLUTE AUTO 0.07 K/mm3 (0.00-0.10); IMMATURE GRAN PERCENT AUTO 1 % (0-1); LYMPHOCYTES ABSOLUTE AUTO 0.62 K/mm3 (0.84-5.20); LYMPHOCYTES PERCENT AUTO 8 % (21-46); MONOCYTES ABSOLUTE AUTO 1.07 K/mm3 (0.16-1.47); MONOCYTES PERCENT AUTO 13 % (4-13); Mean Corpuscular HGB 29.9 pg (26.0-34.0); Mean Corpuscular HGB Conc 31.7 g/dL (31.5-36.5); Mean Corpuscular Volume 95 fL (80-100); Mean Platelet Volume 11.2 fL (9.1-12.4); NEUTROPHILS ABSOLUTE AUTO 6.24 K/mm3 (1.96-9.15); NEUTROPHILS PERCENT AUTO 78 % (41-73); NRBC ABSOLUTE 0.03 K/mm3 (0.00-0.02); NRBC Auto 0.4 /100 WBC (0.0-0.2); Platelet Count 80 K/mm3 (150-400); RDW Coefficient Variation 20.9 % (11.7-14.2); RDW Standard Deviation 69.7 fL (35.1-46.3); Red Blood Cell Count 3.84 M/mm3 (3.80-5.20); White Blood Cell Count 8.04 K/mm3 (4.00-11.30)
[2023-02-06 18:39] LABS: Albumin/Globulin Ratio 0.7 (0.8-1.8); Bilirubin, Total 0.6 mg/dL (0.1-1.0); Bun/Creatinine Ratio 26.1 (12.0-20.0); Calcium, Blood 7.4 mg/dL (8.5-10.1); Creatinine, Blood 1.65 mg/dL (0.40-1.00); Globulin, Blood 2.9 g/dL (2.2-4.0); Potassium, Blood 4.7 mmol/L (3.5-5.5); Total Protein, Blood 4.9 g/dL (6.4-8.2)
[2023-02-06] MEDS ORDERED: ALBU90OI INH (19:06)
[2023-02-06] MEDS ORDERED: DAPS100 PO (19:07)
[2023-02-06] MEDS ORDERED: ASPI81CH PO (19:07)
[2023-02-06] MEDS ORDERED: ALEN70 PO (19:07)
[2023-02-06] MEDS ORDERED: AZAT50 PO (19:07)
[2023-02-06] MEDS ORDERED: CLOP75 PO (19:07)
[2023-02-06] MEDS ORDERED: MELATONIN5 M1 PO (19:08)
[2023-02-06] MEDS ORDERED: IPRAT-ALBUT 0.5-3 ML IH (19:08)
[2023-02-06] MEDS ORDERED: GABA300 PO (19:08)
[2023-02-06] MEDS ORDERED: LEVSOD25 PO (19:08)
[2023-02-06] MEDS ORDERED: OMEP20ER PO (19:08)
[2023-02-06] MEDS ORDERED: MIDO5 PO (19:09)
[2023-02-06] MEDS ORDERED: TRAZ150T57 PO (19:09)
[2023-02-06] MEDS ORDERED: SUMA25 PO (19:09)
[2023-02-06] MEDS ORDERED: BUME2 PO (19:10)
[2023-02-06] MEDS ORDERED: CEPH500 PO (19:10)
[2023-02-07 00:04] LABS: Free Thyroxine 0.66 ng/dL (0.70-1.60); Thyroid Stimulating Hormone 5.91 uIU/mL (0.360-4.800)
[2023-02-07 04:09] LABS: BASOPHILS ABSOLUTE AUTO 0.03 K/mm3 (0.00-0.23); BASOPHILS PERCENT AUTO 0 % (0-2); EOSINOPHILS ABSOLUTE AUTO 0.02 K/mm3 (0.00-0.68); EOSINOPHILS PERCENT AUTO 0 % (0-6); Hematocrit 31.6 % (33.0-51.0); IMMATURE GRAN ABSOLUTE AUTO 0.13 K/mm3 (0.00-0.10); IMMATURE GRAN PERCENT AUTO 1 % (0-1); LYMPHOCYTES ABSOLUTE AUTO 0.68 K/mm3 (0.84-5.20); LYMPHOCYTES PERCENT AUTO 7 % (21-46); MONOCYTES ABSOLUTE AUTO 1.38 K/mm3 (0.16-1.47); MONOCYTES PERCENT AUTO 13 % (4-13); Mean Corpuscular HGB 29.8 pg (26.0-34.0); Mean Corpuscular HGB Conc 31.6 g/dL (31.5-36.5); Mean Corpuscular Volume 94 fL (80-100); Mean Platelet Volume 11.6 fL (9.1-12.4); NEUTROPHILS ABSOLUTE AUTO 8.19 K/mm3 (1.96-9.15); NEUTROPHILS PERCENT AUTO 79 % (41-73); Platelet Count 79 K/mm3 (150-400); RDW Coefficient Variation 20.8 % (11.7-14.2); RDW Standard Deviation 69.1 fL (35.1-46.3); Red Blood Cell Count 3.36 M/mm3 (3.80-5.20); White Blood Cell Count 10.43 K/mm3 (4.00-11.30)
[2023-02-07 04:21] LABS: Albumin, Blood 2.4 g/dL (3.4-5.0); Bilirubin, Total 0.8 mg/dL (0.1-1.0); Bun/Creatinine Ratio 27.1 (12.0-20.0); Calcium, Blood 7.3 mg/dL (8.5-10.1); Creatinine, Blood 1.66 mg/dL (0.40-1.00); Globulin, Blood 2.4 g/dL (2.2-4.0); Potassium, Blood 4.4 mmol/L (3.5-5.5); Total Protein, Blood 4.8 g/dL (6.4-8.2)
[2023-02-07 05:09] LABS: Source, Urine Foley catheter
[2023-02-07 05:17] LABS: Appearance, Urine Clear (Clear); Bilirubin, Urine Neg (Neg); Blood, Urine Neg (Neg); Color, Urine Yellow (P-Yellow); Glucose Qualitative, Urine Neg (Neg); Ketones, Urine Neg (Neg); Leukocyte Esterase, Urine Neg (Neg); Nitrite, Urine Neg (Neg); Protein, Urine Neg (Neg); Urobilinogen, Urine NORM (Normal)
--- NOTE | 2023-02-07 06:05 | NUR ---
NEW ADMIT TO ICU 15: ER ADMIT TO ICU 15 ARRIVED TO THE UNIT AT 0005. PT ADMITED WITH HYPOTENSION AND ON LEVO GTT @ 4 MCG UPON ARRIVAL. PT A&O X 4 AND VERY PLEASANT. PT IS COOPERATIVE WITH CARE. PT ON RA UPON ARRIVAL TO THE UNIT WITH SPO2 96<; CLEAR LUNG SOUNDS THROUGHOUT, PT HAD C/O SOB AT THIS TIME. LATER ON IN THE MORNING PT PLACED ON NC @ 2LPM TO MAINTAIN SPO2 LEVELS. PT IRREGULAR RYTHYM ON MONITOR WITH HR 70-80'S AND SBP 100'S; LEVO GTT @ 28 MCG AND VASO GTT @ 0.04 UNITS. HYPOACTIVE BS, ROUND, NON-TENDER ABD. PT STATES HAVING DIFFICULTY WITH VOIDING/ELIMINATION. PT BLADDER SCANNED AND 496 ML IN URINE; PT STATES PROBLEM WITH RETENTION AND HAS NOT VOIDED IN OVER 12 HOURS. HAUSER INSERTED THIS MORNING AND 575 ML OUTPUT THIS SHIFT. PT VERY EDEMATOUS THROUGHOUT ENTIRE BODY. BLE UP TO TORSO 3+; PT STATES SWELLING HAS CAUSED DECLINE IN MOBILITY AND ABILITY TO COMPLETE ADL'S FOR THE PAST FOUR WEEKS. PT HAS SCATTERED SCABS ON BLE AND STATES THAT THE VARIOUS SCABS HAVE BEEN THERE FOR A WHILE AND STRUGGLE WITH HEALING. PT HAS RIJ AND 20 G LAC. BED LOWERED, CALL LIGHT IN REACH, WILL CONTINUE TO MONITOR UNTIL ONCOMING RN ARRIVES.
--- NOTE | 2023-02-07 07:16 | NUR ---
Assumed care. Report recieved from nightshift RN. Pt sleeping in bed, on 02 via NC. Levophed infusing at 28 mcg/min, vasopressin infusing at 0.04 units/min, NS infusing at 100 ml/hr. R/central line IJ in place, WNL. No acute needs a time of report. Continue to monitor.
--- NOTE | 2023-02-07 18:52 | NUR ---
Shift summary. Pt rested in bed throughout shift, NC removed this morning, pt sats >93% on RA the rest of the shift. Nuclear lab study and Echo done this shift, see notes. Levophed infusing at 22 mcg/min, vasopressin 0.04 units/min, NS 100 ml/hr. Pt c/o constipation, bowel medications ordered by Dr. Arcos, see orders. No acute events this shift. See assessments/notes for further information. Will continue to monitor and report off to nightshift RN.
[2023-02-08 04:40] LABS: Hematocrit 37.3 % (33.0-51.0); Hemoglobin 12.2 g/dL (11.5-16.0); Mean Corpuscular HGB Conc 32.7 g/dL (31.5-36.5); Mean Corpuscular Volume 92 fL (80-100); Mean Platelet Volume 11.7 fL (9.1-12.4); NRBC ABSOLUTE 0.03 K/mm3 (0.00-0.02); NRBC Auto 0.2 /100 WBC (0.0-0.2); Platelet Count 87 K/mm3 (150-400); RDW Coefficient Variation 20.8 % (11.7-14.2); Red Blood Cell Count 4.06 M/mm3 (3.80-5.20); White Blood Cell Count 13.19 K/mm3 (4.00-11.30)
[2023-02-08 05:00] LABS: Albumin/Globulin Ratio 0.8 (0.8-1.8); Bilirubin, Total 0.7 mg/dL (0.1-1.0); Bun/Creatinine Ratio 29.9 (12.0-20.0); Creatinine, Blood 1.37 mg/dL (0.40-1.00); Globulin, Blood 2.5 g/dL (2.2-4.0); Magnesium, Blood 2.4 mg/dL (1.6-2.4); Potassium, Blood 4.2 mmol/L (3.5-5.5); Total Protein, Blood 4.5 g/dL (6.4-8.2)
--- NOTE | 2023-02-08 18:37 | NUR ---
Shift summary. Pt remained in bed throughout shift. Levophed infusing at 28 mcg/min, vasopressin infusing at 0.04 units/min. NS infusing at 75 ml/hr. On RA, sats >94%. Pt c/o severe headache this afternoon, orders obtained for Imitrex from Dr. Burciaga. Pt reports some relief from medication. No acute changes, see assessment/chart for further details. Will continue to monitor and report off to nightshift RN.
[2023-02-09 05:05] LABS: BASOPHILS ABSOLUTE AUTO 0.02 K/mm3 (0.00-0.23); BASOPHILS PERCENT AUTO 0 % (0-2); EOSINOPHILS PERCENT AUTO 0 % (0-6); Hematocrit 37.1 % (33.0-51.0); Hemoglobin 12.1 g/dL (11.5-16.0); IMMATURE GRAN ABSOLUTE AUTO 0.16 K/mm3 (0.00-0.10); IMMATURE GRAN PERCENT AUTO 1 % (0-1); LYMPHOCYTES ABSOLUTE AUTO 0.61 K/mm3 (0.84-5.20); LYMPHOCYTES PERCENT AUTO 5 % (21-46); MONOCYTES PERCENT AUTO 12 % (4-13); Mean Corpuscular HGB 29.9 pg (26.0-34.0); Mean Corpuscular HGB Conc 32.6 g/dL (31.5-36.5); Mean Corpuscular Volume 92 fL (80-100); Mean Platelet Volume 10.6 fL (9.1-12.4); NEUTROPHILS ABSOLUTE AUTO 11.11 K/mm3 (1.96-9.15); NEUTROPHILS PERCENT AUTO 82 % (41-73); NRBC ABSOLUTE 0.02 K/mm3 (0.00-0.02); NRBC Auto 0.1 /100 WBC (0.0-0.2); Platelet Count 69 K/mm3 (150-400); RDW Coefficient Variation 20.7 % (11.7-14.2); Red Blood Cell Count 4.05 M/mm3 (3.80-5.20)
[2023-02-09 05:42] LABS: Albumin, Blood 1.8 g/dL (3.4-5.0); Albumin/Globulin Ratio 0.7 (0.8-1.8); Bilirubin, Total 0.8 mg/dL (0.1-1.0); Bun/Creatinine Ratio 34.1 (12.0-20.0); Calcium, Blood 7.2 mg/dL (8.5-10.1); Creatinine, Blood 1.35 mg/dL (0.40-1.00); Globulin, Blood 2.5 g/dL (2.2-4.0); Potassium, Blood 4.3 mmol/L (3.5-5.5); Total Protein, Blood 4.3 g/dL (6.4-8.2)
--- NOTE | 2023-02-09 06:05 | NUR ---
SHIFT SUMMARY: NO ACUTE CHANGES THROUGHOUT THE NIGHT. PT SLEPT THROUGHOUT THE NIGHT. VSS THROUGHOUT THE NIGHT. PT DECLINED BED BATH THIS SHIFT. 450 URINE OUTPUT. PT HAD A SMEAR BOWEL MOVEMENTS BUT STATES THAT IS HAS BECOME EASIER TO PASS GAS THIS SHIFT. PT REMAINS ON LEVO GTT @ 24 MCG AND VASO GTT @ 0.04 UNITS; NS GTT @ 75 MLS. WILL CONTINUE TO MONITOR UNTIL ONCOMING RN ARRIVES.
--- NOTE | 2023-02-09 08:18 | NUR ---
AM NOTE... ASSUMED CARE OF PT AT 0700, PT IS A&Ox4. SHE IS ON LEVOPHED AT 24MCG AND VASOPRESSING AT 0.04UNITS/HR WITH MAPS >65. SHE IS IN SR W/FIRST DEGREE, BBB AND VERY FREQUENT PACs. SHE DENIES ANY CHEST PAIN AT THIS TIME. SHE HAS 3+ GENERALIZED EDEMA. SHE IS ON RA WITH O2 SATS >95% L/S CLEAR T/O DIM IN THE BASES. BT PRESENT AND VERY HYPOACTIVE,ABD IS SOFT AND NONTENDER TO PALPATION. PT IS C/O OF NOT HAVING A BM x8 DAYS AND NOT WANTING TO EAT UNTIL SHE HAS A BM. THIS RN SPOKE WITH THE PT'S DAUGHTER WHO SAID THE PT HAD A BM ON 02/05 WHICH IS ONLY 4 DAYS AGO. BOWEL CARE STARTED. PT'S HAUSER IS PATENT AND DRAINING TO GRAVITY. WILL CONTINUE TO MONITOR UNTIL REPORT IS GIVEN.
--- NOTE | 2023-02-09 17:49 | NUR ---
SHIFT SUMMARY.... NO ACUTE NEGATIVE CHANGES NOTED THIS SHIFT. THE PT'S LEVOPHED HAS BEEN TITRATED DOWN FROM 24MCG TO 10MCG AND THE VASOPRESSIN WAS PUT ON STANDBY. THE PT HAS BEEN HYPER-FOCUSED ON TRYING TO HAVE A BM, ASKING THIS RN TO "USE YOUR FINGERS TO DIG IT OUT." THIS RN EDUCATED THE PT ON POSSIBLE DAMAGE THAT CAN OCCUR WITH DIGITAL STOOL REMOVAL. PT VERBALIZED HER UNDERSTANDING BUT STILL WANTED THIS RN TO DO IT. THE PT WAS STARTED ON SEVERAL TYPES OF BOWEL CARE THIS SHIFT. THE PT'S HAUSER IS PATENT AND DRAINING TO GRAVITY. WILL CONTINUE TO MONITOR UNTIL REPORT IS GIVEN TO ONCOMING RN.
--- NOTE | 2023-02-10 06:36 | NUR ---
SHIFT SUMMARY: NO ACUTE CHANGES THIS SHIFT. PT WAS ABLE TO SLEEP MOST OF THE NIGHT. PT IS HAVING C/O GAS PAIN; PT TURNED AND WAS ABLE TO RELIEVE SOME GAS THIS MORNING. PT IS SOME WHAT HYSTERICAL REGARDING HER GAS PAIN AND CONSTIPATION AND HAS BEEN DECLINING REPOSITIONINGS THROUGHOUT THE NIGHT DUE TO FEAR ABOUT PAIN WHEN MOVING. PT EDUCATED ABOUT THE IMPORTANCE OF MOVING IN BED WHEN SHE IS NOT GETTING UP AND WALKING DAILY. PT NOTED TO BE DEPRESSED AND ANXIOUS; MEDICATED PER EMAR. PT VSS THROUGHOUT THE NIGHT; REMAINS ON LEVO GTT @ 20 MCG AND VASO GTT @ 0.04 UNITS. NS GTT @ 75 MLS/HR. PT HAD A FEW NAUSEA EPISODES THROUGHOUT THE NIGHT, MEDICATED PER EMAR. PT HAD SMAL BM THIS MORNING, HEMARRHOIDS ARE VERY PAINFUL DURING CLEANING. PT USING CALL LIGHT APPROPRIATELY, BED LOWERED, WILL CONTINUE TO MONITOR UNTIL ONCOMING RN ARRIVES.
[2023-02-10 09:26] LABS: BASOPHILS ABSOLUTE AUTO 0.02 K/mm3 (0.00-0.23); BASOPHILS PERCENT AUTO 0 % (0-2); EOSINOPHILS ABSOLUTE AUTO 0.01 K/mm3 (0.00-0.68); EOSINOPHILS PERCENT AUTO 0 % (0-6); Hematocrit 36.8 % (33.0-51.0); Hemoglobin 11.8 g/dL (11.5-16.0); IMMATURE GRAN ABSOLUTE AUTO 0.16 K/mm3 (0.00-0.10); IMMATURE GRAN PERCENT AUTO 1 % (0-1); LYMPHOCYTES ABSOLUTE AUTO 0.66 K/mm3 (0.84-5.20); LYMPHOCYTES PERCENT AUTO 5 % (21-46); MONOCYTES ABSOLUTE AUTO 1.71 K/mm3 (0.16-1.47); MONOCYTES PERCENT AUTO 12 % (4-13); Mean Corpuscular HGB 29.4 pg (26.0-34.0); Mean Corpuscular HGB Conc 32.1 g/dL (31.5-36.5); Mean Corpuscular Volume 92 fL (80-100); Mean Platelet Volume 11.7 fL (9.1-12.4); NEUTROPHILS ABSOLUTE AUTO 11.63 K/mm3 (1.96-9.15); NEUTROPHILS PERCENT AUTO 82 % (41-73); NRBC ABSOLUTE 0.03 K/mm3 (0.00-0.02); NRBC Auto 0.2 /100 WBC (0.0-0.2); RDW Coefficient Variation 20.3 % (11.7-14.2); RDW Standard Deviation 67.7 fL (35.1-46.3); Red Blood Cell Count 4.01 M/mm3 (3.80-5.20); White Blood Cell Count 14.19 K/mm3 (4.00-11.30)
[2023-02-10 09:33] LABS: Platelet Count 50 K/mm3 (150-400)
--- NOTE | 2023-02-10 12:57 | NUR ---
REASSESSMENT PT SPENT THE MORNING LYING IN BED. WAKES EASILY TO VOICE, ORIENTED. LEVOPHED WAS TITRATED DOWN THROUGHOUT THE MORNING, SEE FLOWSHEET. CURRENTLY AT 12MCG/MIN. SR AT REST, SINUS TACH IN THE 1TEENS WITH GETTING UP TO COMMODE. PT FINALLY AGREED TO GET UP TO THE COMMODE THIS AFTERNOON. PT UP WITH 2 PERSON ASSIST, WALKER AND GAIT BELT. PT VERY ANXIOUS WITH ACTIVITY, REQUIRED LOTS OF REASSURANCE AND ENCOURAGEMENT. LUNGS ARE CLEAR, RA. HAUSER WITH YELLOW URINE. BM WHEN SITTING ON EOB AND PT NOW ON COMMODE. PT'S GRANDDAUGHTER CALLED THIS AM AND WAS UPDATED.
--- NOTE | 2023-02-10 18:03 | NUR ---
SHIFT SUMMARY PT SPENT THE DAY RESTING IN BED EXCEPT FOR THE ONE TIME SHE GOT UP TO THE COMMODE. SHE REMAINS ALERT AND ORIENTED. CLEAR LUNGS, RA. WHEN SHE GOT UP TO THE COMMODE SHE DID GET SHORT OF BREATH AND ASKED FOR OXYGEN, BUT HER SPO2 REMAINED ABOVE 90%. SR WITH PAC. LEVOPHED TITRATED THROUGHOUT THE DAY, SEE FLOWSHEET. REMAINS GENERALLY EDEMATOUS. PT REFUSED BREAKFAST AND LUNCH, BUT IS PICKING AT DINNER. HAUSER WITH 300ML OF URINE, YELLOW. PT'S GRANDDAUGHTER AT THE BEDSIDE NOW AND REQUESTED GAS-X FOR PT. SHE STATES THE PT TAKES IT REGULARLY AT HOME. SPOKE WITH DR. ESQUIVEL AND RECEIVED ORDER FOR SIMETHICONE.
--- NOTE | 2023-02-11 06:41 | NUR ---
SHIFT SUMMARY OVERNIGHT, PATIENT A/0X4. TEARFUL, ANXIOUS, PAINFUL. MEDICATED FOR ANXIETY AND PAIN AT BEGINNING OF SHIFT, SEE MAR. PATIENT HAVING ROM AND MOBILITY ISSUES; ASKS STAFF FOR ASSISTANCE MOVING LIMBS. FREQUENTLY REFUSING TURNS DESPITE EDUCATION. PATIENT C/O GENERALIZED PAIN THAT SHE ATTRIBUTES TO HER FIBROMYALGIA. NOTIFIED DR SHELL OF INADEQUATE PAIN REGIMEN; RECEIVED ORDERS FOR FENTANYL, WHICH PATIENT REPORTS HAS BEEN THE ONLY THING TO CONTROL HER PAIN FOR SHORT PERIODS. PATIENT IS EXTREMELY EDEMATOUS, MAKING ACCURATE BLOOD PRESSURES VERY DIFFICULT TO OBTAIN, DESPITE ATTEMPTS ON ALL EXTREMITIES. PRESSORS REQUIREMENT TRENDING UP OVERNIGHT. SPOKE WITH DR SHELL ABOUT NEED FOR ARTERIAL LINE, PRESSURE ON BP CUFF ARE POSSIBLY INACCURATE (EX, PATIENTS BP READING 40/20S, YET PATIENT A/OX4, TALKING, INTERACTIVE) WELL OLIGURA/DOWNTRENDING URINE OUTPUT. DR SHELL MADE MULTIPLE ATTEMPTS FOR A FEMORAL LINE BUT WAS UNSUCCESSFUL. NOTIFIED OF PRESSOR REQUIREMENT AT MAX (LEVO 30, VASO 0.04), BUT CUFF PRESSURES REMAIN LOW. ORDERS RECEIVED TO NOT INCREASE PRESSOR REQUIREMENT FURTHER, AND USE MENTATION MAIN ASSESSMENT TO PERFUSION IN ADDITION TO CHANGES IN VITAL SIGNS. CONTINUED TO TAKE BP Q15, BUT MD AWARE OF THE LIKELY INACCURACY OF PRESSURES DUE TO PATIENT'S SEVERE EDEMA. ORDERS RECEIVED TO CONSULT RECLAIMER; HOPEFUL FOR ARTERIAL LINE TODAY. PATIENT REQUIRED 1-2L NC INTERMITTENTLY OVERNIGHT. PATIENT REPEATEDLY REFUSING CONTINOUS PULSE OX MONITORING, BECAUSE SHE STATES THEY HURT HER. SWELLING AND COOL EXTREMITIES MAKES IT DIFFICULT TO GET ACCURATE READINGS ON EXTREMITIES WELL; EAR LOBE AND NOSE PROBE ATTEMPTED WITH OCCASIONAL SUCCESS. PATIENT REMAINS DYSPNIC WITH MOVEMENT. PATIENT TOLERATING PO FLUIDS. HOWEVER, ABDOMEN DISTENDED AND C/O GAS PAIN. MEDICATED WITH SIMETHICONE PER MAR WITH SOME RELIEF. NO BM OVERNIGHT. OLIGURIC VIA HAUSER CATH. WILL CONITNUE TO MONITOR.
[2023-02-11 06:44] LABS: BASOPHILS ABSOLUTE AUTO 0.04 K/mm3 (0.00-0.23); BASOPHILS PERCENT AUTO 0 % (0-2); EOSINOPHILS PERCENT AUTO 0 % (0-6); Hematocrit 43.6 % (33.0-51.0); Hemoglobin 13.8 g/dL (11.5-16.0); IMMATURE GRAN ABSOLUTE AUTO 0.35 K/mm3 (0.00-0.10); IMMATURE GRAN PERCENT AUTO 2 % (0-1); LYMPHOCYTES ABSOLUTE AUTO 0.73 K/mm3 (0.84-5.20); LYMPHOCYTES PERCENT AUTO 4 % (21-46); MONOCYTES ABSOLUTE AUTO 1.82 K/mm3 (0.16-1.47); MONOCYTES PERCENT AUTO 11 % (4-13); Mean Corpuscular HGB 29.2 pg (26.0-34.0); Mean Corpuscular HGB Conc 31.7 g/dL (31.5-36.5); Mean Corpuscular Volume 92 fL (80-100); NEUTROPHILS ABSOLUTE AUTO 14.44 K/mm3 (1.96-9.15); NEUTROPHILS PERCENT AUTO 83 % (41-73); NRBC ABSOLUTE 0.11 K/mm3 (0.00-0.02); NRBC Auto 0.6 /100 WBC (0.0-0.2); Platelet Count 56 K/mm3 (150-400); RDW Coefficient Variation 20.6 % (11.7-14.2); RDW Standard Deviation 69.2 fL (35.1-46.3); Red Blood Cell Count 4.73 M/mm3 (3.80-5.20); White Blood Cell Count 17.38 K/mm3 (4.00-11.30)
[2023-02-11 06:56] LABS: Bun/Creatinine Ratio 31.4 (12.0-20.0); Calcium, Blood 7.4 mg/dL (8.5-10.1); Creatinine, Blood 1.59 mg/dL (0.40-1.00); Potassium, Blood 4.9 mmol/L (3.5-5.5)
[2023-02-11 12:31] LABS: Free Thyroxine 0.59 ng/dL (0.70-1.60); Thyroid Stimulating Hormone 3.38 uIU/mL (0.360-4.800)
--- NOTE | 2023-02-11 15:37 | NUR ---
"Spiritual Care | Nurse Request Pt. is mostly non-responsive. Family members are present and welcome my visit. Facilitate a life review, and a medical review. Family members display evidence of understanding the Pts. wishes, but are appropriately grieving. Pts. older sister is present. Gather at bedside and pray for Pt. and the family. Palliative care nurse Cary arrives to give support to family. Daughter and granddaughter verbalize gratitude for the spiritual care visit. Will continue to be available to the family."
--- NOTE | 2023-02-11 18:06 | NUR ---
PT CONTINUES TO REQUIRE PAIN MEDICATION, CONTINUES TO REST OFTEN. FAMILY INITIALLY WAS HOPING PT'S CONDITION WOULD IMPROVE. HOWEVER, THE PT DOES NOT APPEAR TO BE IMPROVING, AND REMAINS ON PRESSERS. PALLIATIVE CARE WILL REMAIN AVAILABLE.
--- NOTE | 2023-02-11 18:37 | NUR ---
"Spiritual Care | Nurse Request Pt. is not responsive, and additional family members are present. Grand daughter and great granddaughter are appropriately grieving. Pastoral Care is given with a calming presence. Prayed for family during this time of transition. Daughter and Granddaughter verbalize gratitude for the spiritual care visit."
--- NOTE | 2023-02-11 19:06 | NUR ---
Shift summary. Pt rested in bed throughout shift. Pt very painful this shift, refusing turns due to pain. Epinephrine added for low BP readings, titrated to 6 mcg/min, currently infusing at 3 mcg/min. Levophed infusing at 30 mcg/min, no changes this shift, vasopressin infusing at 0.04 units/min, no change. Pt asked to have interventions stopped this shift, family contacted and came in to to see her. Transitioned to comfort care at approximately 1815, family at bedside. See chart for further details, report given to oncoming RN.
--- NOTE | 2023-02-11 19:57 | NUR ---
ASSUMED CARE OF PATIENT AT 1900 PATIENT MADE COMFORT CARE, FAMILY IN ROOM WITH PATIENT. DAYSHIFT RN MEDICATED PATIENT FOR PAIN. PATIENT APPEARS COMFORTABLE AND FAMILY AGREES WITH THIS ASSESSMENT. PER FAMILY REQUEST PRESSORS WILL SLOWLY BE TITRATED OFF. PATIENT ON 5L NC FOR COMFORT.
--- NOTE | 2023-02-11 20:41 | NUR ---
PATIENT MEDICATED FOR DISCOMFORT/AIR HUNGER, SEE EMAR. FAMILY REMAINS AT BEDSIDE. VASOPRESSIN TITRATED OFF PER FAMILY REQUEST
--- NOTE | 2023-02-11 22:10 | NUR ---
PATIENT WITH AIR HUNGER, MEDICATED PER EMAR. FAMILY REMAINS AT BEDSIDE
--- NOTE | 2023-02-11 23:51 | NUR ---
PATIENT PASSED AT 2248, FAMILY AT BEDSIDE WITH PATIENT. NOTIFIED OF TOD
[2023-02-12 08:11] LABS: COMPLEMENT C3, SERUM 51 mg/dL (82-167); COMPLEMENT C4, SERUM 2 mg/dL (12-38)
== END 2023-02-11 22:48 | DRG 314 ==
LOC: ER 17:24 → PCU 17:25 → ICUW 23:32 → PCU 23:32 → ICUW 23:54
PROVIDERS: Family Medicine; Internal Medicine Critical Care Medicine; Physician Assistant; ADMIT Internal Medicine
PROC: 3E033XZ Introduction of Vasopressor into Peripheral Vein, Percutaneous Approach (ICD-10-PCS; 2023-02-06)
PROC: 0T9B70Z Drainage of Bladder with Drainage Device, Via Natural or Artificial Opening (ICD-10-PCS; 2023-02-06)
PROC: 02H633Z Insertion of Infusion Device into Right Atrium, Percutaneous Approach (ICD-10-PCS; principal; 2023-02-07)
DX: I95.9 Hypotension, unspecified (principal); N17.0 Acute kidney failure with tubular necrosis; E87.1 Hypo-osmolality and hyponatremia; E27.40 Unspecified adrenocortical insufficiency; Z68.41 Body mass index [BMI] 40.0-44.9, adult; M32.9 Systemic lupus erythematosus, unspecified; M79.7 Fibromyalgia; Z51.5 Encounter for palliative care; M06.9 Rheumatoid arthritis, unspecified; G43.909 Migraine, unspecified, not intractable, without status migrainosus; K58.9 Irritable bowel syndrome, unspecified; E03.9 Hypothyroidism, unspecified; E78.5 Hyperlipidemia, unspecified; R13.10 Dysphagia, unspecified; I10 Essential (primary) hypertension; E88.09 Other disorders of plasma-protein metabolism, not elsewhere classified; N28.9 Disorder of kidney and ureter, unspecified; K59.00 Constipation, unspecified; K64.9 Unspecified hemorrhoids; D69.6 Thrombocytopenia, unspecified; E66.9 Obesity, unspecified; K21.9 Gastro-esophageal reflux disease without esophagitis; Z96.641 Presence of right artificial hip joint; Z86.718 Personal history of other venous thrombosis and embolism; Z88.0 Allergy status to penicillin; Z88.8 Allergy status to other drugs, medicaments and biological substances; Z79.899 Other long term (current) drug therapy; Z79.51 Long term (current) use of inhaled steroids; Z79.82 Long term (current) use of aspirin; Z79.2 Long term (current) use of antibiotics; Z86.73 Personal history of transient ischemic attack (TIA), and cerebral infarction without residual deficits; Z98.890 Other specified postprocedural states; Z98.51 Tubal ligation status; Z86.711 Personal history of pulmonary embolism; Z87.19 Personal history of other diseases of the digestive system; Z79.02 Long term (current) use of antithrombotics/antiplatelets; Z79.01 Long term (current) use of anticoagulants; Z92.25 Personal history of immunosuppression therapy
CPT/HCPCS: 36415; 36556; 51702; 71045; 71046; 78580; 80048; 80053; 81003; 82533; 82947; 83735; 83880; 84100; 84439; 84443; 84484; 85025; 85027; 85379; 86160; 86225; 87040; 93005; 93010; 93306; 94760; 96361; 96365; 99285-25; A9270; A9540; C1751; J0171; J1170; J1630; J1720; J1956; J2270; J2405; J3010; J3370; J7030; J7050; J7060; J7500; P9047